=== PATIENT | female | born 1950 | race Caucasian/White ===

== ENCOUNTER 2016-09-26 14:13 | Outpatient (CLI) | payer MEDICARE, OTHER | END 2016-09-26 14:14 | disposition home or self-care (01) | DX: M51.34 Other intervertebral disc degeneration, thoracic region (principal); R53.83 Other fatigue; R06.2 Wheezing ==

== ENCOUNTER 2016-11-27 15:36 | Outpatient (CLI) | payer MEDICARE, OTHER ==
--- NOTE | 2016-11-28 09:26 | XRAY Report ---
THREE-VIEW CERVICAL SPINE: 11/27/2016 CLINICAL INDICATION: Acute neck pain. FINDINGS: AP, lateral, odontoid views of the cervical spine demonstrate moderate degenerative disk a nd facet disease, with disk space narrowing worst at C5-6. There is no evidence of acute fracture. The paravertebral soft tissues appear unremarkable. IMPRESSION: MODERATE DEGENERATIVE CHANGES. JOB #: [id number] EXT JOB #:[id number]
--- NOTE | 2016-11-28 09:27 | XRAY Report ---
THREE-VIEW LEFT SHOULDER: 11/27/2016 CLINICAL INDICATION: Left arm pain. FINDINGS: Internal and external rotational views and a scapular Y view of the left shoulder demonstr ate no evidence of acute fracture or dislocation. Moderate degenerative changes of the glenohumeral joint are noted, with subchondral sclerosis and osteophytes. No radiopaque foreign body is seen in t he soft tissues. IMPRESSION: MODERATE LEFT GLENOHUMERAL OSTEOARTHRITIS. JOB #: [id number] EXT JOB #:[id number]
== END 2016-11-27 15:37 | disposition home or self-care (01) ==
LOC: DI.S 15:36
PROVIDERS: ATTEND Internal Medicine
DX: M50.30 Other cervical disc degeneration, unspecified cervical region (principal); M47.892 Other spondylosis, cervical region; M19.012 Primary osteoarthritis, left shoulder
CPT/HCPCS: 72040

== ENCOUNTER 2016-12-15 07:48 | Outpatient (CLI) | payer MEDICARE, OTHER ==
[2016-12-15 10:48] LABS: BUN - BLOOD UREA NITROGEN 25 mg/dL (6-20); CALCIUM 9.7 mg/dL (8.5-10.3); CARBON DIOXIDE - CO2 25 mmol/L (21-32); CHLORIDE 103 mmol/L (101-111); CHOL/HDL RATIO 3.5 (<4.4); CHOLESTEROL 221 mg/dL; CREATININE 0.9 mg/dL (0.4-1.0); GFR - MDRD 62 (>89); GLUCOSE 109 mg/dL (70-100); HDL CHOLESTEROL 63 mg/dL; LDL/HDL RATIO 2.2 (<4.4); POTASSIUM 4.5 mmol/L (3.5-5.0); SODIUM 135 mmol/L (135-145); TRIGLYCERIDES 110 mg/dL; VLDL CHOLESTEROL 22 mg/dL
[2016-12-15 10:55] LABS: HEMOGLOBIN A1C 0.66 g/dL
== END 2016-12-15 07:49 | disposition home or self-care (01) ==
LOC: LAB.F 07:48
PROVIDERS: ATTEND Internal Medicine
DX: E11.9 Type 2 diabetes mellitus without complications (principal); E78.00 Pure hypercholesterolemia, unspecified; R68.89 Other general symptoms and signs
CPT/HCPCS: 36415; 80048; 80061; 82043; 82570; 83036; 84443

== ENCOUNTER 2017-12-14 07:32 | Outpatient (CLI) | END 2017-12-14 07:33 | disposition home or self-care (01) ==

== ENCOUNTER 2018-01-28 09:49 | Outpatient (CLI) | payer MEDICARE, OTHER ==
[2018-01-28] MEDS ORDERED: REGADENOSON 0.4 MG/5 ML SYRINGE IVP ONE ×2 (10:15→15:42)
--- NOTE | 2018-01-28 16:09 | Nuclear Medicine Report ---
Procedure Date: 01/28/2018 Accession Number: [id number] / [id number] Procedure: NM - Myocardial Perfusion STR/RST CPT Code: FULL RESULT: EXAM: SINGLE-ISOTOPE PHARMACOLOGICAL STRESS TEST WITH REGADENOSON. SINGLE-ISOTOPE AND ONE-DAY REST/STRESS MYOCARDIAL PERFUSION SCANS WITH TOMOGRAPHIC IMAGING, QUANTITATIVE ANALYSIS, WALL MOTION ANALYSIS AND CALCULATION OF EJECTION FRACTION. EXAM DATE: 01/28/2018 03:44 PM. CLINICAL HISTORY: CHEST PRESSURE, SOB. COMPARISON: None. TECHNIQUE: After the intravenous administration of 10.4 mCi of Tc-99m sestamibi, a rest myocardial perfusion scan was done with tomography. Motion correction was applied when appropriate. After an appropriate delay, pharmacological stress was performed with the infusion of 0.4 mg regadenoson per protocol. According to protocol, 40.2 mCi of Tc-99m sestamibi was injected for stress myocardial perfusion scan. Motion correction was applied when appropriate. Gated tomographic images were obtained for wall motion analysis and computation of left ventricular ejection fraction. EKG findings reported separately. FINDINGS: There is mildly decreased activity in the distal anteroseptal wall, more pronounced on the rest images compared to the stress images which is suggestive of an attenuation artifact. No significant convincing fixed or reversible perfusion defects. Computer analysis: Summed stress score 1 Summed rest score 0 Summed difference score 1 Wall motion analysis demonstrates no focal wall motion abnormality. The left ventricular end-diastolic volume is 67 cc. The left ventricular end-systolic volume is 5 cc. The left ventricular ejection fraction is calculated to be 93%. IMPRESSION: 1. No scintigraphic findings to indicate myocardial ischemia. Negative for infarct. 2. Left ventricular ejection fraction of 93% (this is presumably an overestimate). 3. Normal segmental and global wall motion. 4. Normal left ventricular cavity size, no change with stress. 5. Based on computer analysis, normal exam with no ischemia. RADIA
--- NOTE | 2018-01-28 17:53 | CARDIAC PROCEDURE NOTE ---
DATE OF SERVICE: 01/28/2018 Physician: JASMINA Gautam PRIMARY CARE PROVIDER: Diamond Whipple PA-C PROCEDURE: Pharmacologic cardiac stress test. PROCEDURE SYMPTOMS: Dyspnea on exertion. CARDIAC RISK FACTORS: Age, diabetes, and hypertension. PREVIOUS CARDIAC PROCEDURES: ETT. CLINICAL HISTORY: A 67-year-old female without known coronary artery disease. INITIAL RESTING VITAL SIGNS: BP 100/56, heart rate 56, height 60 inches, weight 220 pounds, BMI 43.2 0. PROCEDURE AND FINDINGS: Patient's identity and date verified. Consent signed. Pharmaceutical checked. Pharmacologic stress testing was performed with Lexiscan at a dose of 0.4 mg over 10 seconds. The he art rate increased to 78 beats per minute from the infusion. Blood pressure response initially dippe d to a systolic of 78, but rebounded to 116/60 and was asymptomatic. The patient developed infusion- related symptoms, which included shortness of air, chest pressure, and headache. These required caff eine to fully resolve. The resting electrocardiogram demonstrated normal sinus rhythm with no ST or T-wave changes. Maximum ST segment depression with stress was 0. There was no ectopy. FINAL IMPRESSION 1. Negative electrocardiogram for ischemia in the setting of vasodilator stress. 2. Nondiagnostic stress test for angina. 3. No ectopy. 4. Await myocardial perfusion report. TD: 01/28/2018 14:27
[2018-02-01 17:08] VITALS: BP 100/56
== END 2018-01-28 09:50 | disposition home or self-care (01) ==
LOC: DI 09:49
PROVIDERS: ATTEND Physician Assistant Medical
DX: R07.89 Other chest pain (principal); R06.09 Other forms of dyspnea
CPT/HCPCS: 78452; 93017; A9500; J2785

== ENCOUNTER 2018-02-02 10:04 | Outpatient (CLI) | payer MEDICARE, OTHER | END 2018-02-02 10:05 | disposition home or self-care (01) | LOC: LAB.R 10:04 | PROVIDERS: ATTEND Physician Assistant Medical | DX: N39.0 Urinary tract infection, site not specified (principal) | CPT/HCPCS: 87077; 87086; 87181 ==

== ENCOUNTER 2018-04-26 08:00 | Outpatient (CLI) | payer MEDICARE, OTHER | END 2018-04-26 23:59 | disposition home or self-care (01) | LOC: LAB.R 08:00 | PROVIDERS: ATTEND Physician Assistant Medical | DX: N39.0 Urinary tract infection, site not specified (principal) | CPT/HCPCS: 87086 ==

== ENCOUNTER 2018-11-24 08:00 | Outpatient (CLI) | payer MEDICARE, OTHER ==
[2018-11-24 10:18] LABS: BASOPHILS # (AUTO) 0.1 10^3/uL (0.0-0.1); BASOPHILS % (AUTO) 0.9 %; EOSINOPHILS # (AUTO) 0.3 10^3/uL (0.0-0.7); HGB - HEMOGLOBIN 13.1 g/dL (12.0-16.0); LYMPHOCYTES # (AUTO) 1.7 10^3/uL (1.5-3.5); LYMPHOCYTES % (AUTO) 18.3 %; MEAN CORPUSCULAR HEMOGLOBIN 28.1 pg (27.0-31.0); MEAN CORPUSCULAR HGB CONC 32.5 g/dL (32.0-36.0); MEAN CORPUSCULAR VOLUME 86.4 fL (81.0-99.0); MEAN PLATELET VOLUME 8.2 fL (7.9-10.8); MONOCYTES # (AUTO) 0.5 10^3/uL (0.0-1.0); MONOCYTES % (AUTO) 5.4 %; NEUTROPHILS # (AUTO) 6.9 10^3/uL (1.5-6.6); NEUTROPHILS % (AUTO) 72.4 %; PLT - PLATELET COUNT 310 10^3/uL (130-450); RED BLOOD COUNT 4.64 10^6/uL (4.20-5.40); RED CELL DISTRIBUTION WIDTH 15.6 % (12.0-15.0); WHITE BLOOD COUNT 9.5 x10^3/uL (4.8-10.8)
[2018-11-24 10:28] LABS: ALBUMIN 3.7 g/dL (3.2-5.5); ALKALINE PHOSPHATASE 57 IU/L (42-121); ALT ALANINE AMINOTRANSFERASE 20 IU/L (10-60); AST ASPARTATE AMINOTRANSFERASE 17 IU/L (10-42); BILIRUBIN,TOTAL 0.5 mg/dL (0.2-1.0); BUN - BLOOD UREA NITROGEN 33 mg/dL (6-20); CALCIUM 9.2 mg/dL (8.5-10.3); CARBON DIOXIDE - CO2 24 mmol/L (21-32); CHLORIDE 101 mmol/L (101-111); CHOL/HDL RATIO 3.3 (<4.4); CHOLESTEROL 204 mg/dL; CREATININE 1.1 mg/dL (0.4-1.0); GFR - MDRD 49 (>89); GLUCOSE 127 mg/dL (70-100); HDL CHOLESTEROL 62 mg/dL; LDL CHOLESTEROL,CALCULATED 115 mg/dL; LDL/HDL RATIO 1.9 (<4.4); SODIUM 134 mmol/L (135-145); TOTAL PROTEIN 7.4 g/dL (6.7-8.2); VLDL CHOLESTEROL 27 mg/dL
[2018-11-24 10:30] LABS: HEMOGLOBIN A1C 0.7 g/dL; HEMOGLOBIN A1C % 6.7 % (4.6-6.2)
[2018-11-24 10:31] LABS: CREATININE,URINE 159.2 mg/dL; MICROALBUM/CREATININE RATIO,UR 3.8 ug/mg (<30.0); MICROALBUMIN,URINE 0.6 mg/dL (0-300.0)
== END 2018-11-24 23:59 | disposition home or self-care (01) ==
LOC: LAB.F 08:00
PROVIDERS: ATTEND Physician Assistant Medical
DX: I10 Essential (primary) hypertension (principal); E11.9 Type 2 diabetes mellitus without complications; E78.00 Pure hypercholesterolemia, unspecified; E03.9 Hypothyroidism, unspecified
CPT/HCPCS: 36415; 80053; 80061; 82043; 82570; 83036; 83721; 84443; 85025

== ENCOUNTER 2019-02-24 05:55 | Day surgery (SDC) | payer MEDICARE, OTHER ==
[2019-02-24] MEDS ORDERED: MIDAZOLAM 2 MG/2 ML VIAL IVP ONE (05:56)
[2019-02-24] MEDS ORDERED: fentaNYL 100 MCG/2 ML VIAL IVP ONE (05:56)
[2019-02-24] MEDS ORDERED: PHENYLEPHRINE 2.5% OPHTH 2 ML DROPS ONE (06:29)
[2019-02-24] MEDS ORDERED: PROPARACAINE 0.5% OPHTH DROPS 15 ML ONE (06:29)
[2019-02-24] MEDS ORDERED: LACTATED RINGERS 500 ML IV ONE (06:29)
[2019-02-24] MEDS ORDERED: KETOROLAC 0.45% OPHTH DROPS ONE (06:29)
[2019-02-24] MEDS ORDERED: CYCLOPENTOLATE 1% OPHTH DROPS 2 ML ONE (06:29)
[2019-02-24] MEDS ORDERED: CYCLOPENTOLATE 1% OPHTH DROPS 2 ML RIGHTEYE ONE (06:45)
[2019-02-24] MEDS ORDERED: PROPARACAINE 0.5% OPHTH DROPS 15 ML RIGHTEYE ONE (06:45)
[2019-02-24] MEDS ORDERED: KETOROLAC 0.45% OPHTH DROPS RIGHTEYE ONE (06:45)
[2019-02-24] MEDS ORDERED: PHENYLEPHRINE 2.5% OPHTH 2 ML DROPS RIGHTEYE ONE (06:45)
[2019-02-24] MEDS ORDERED: BSS/LIDOCAINE/EPINEPHRINE 1 ML SYRINGE ONE (07:15)
[2019-02-24] MEDS ORDERED: TIMOLOL 0.5% OPHTH DROPS ONE (07:17)
[2019-02-24] MEDS ORDERED: BRIMONIDINE 0.2% OPHTH DROPS 5 ML ONE (07:17)
[2019-02-24] MEDS ORDERED: TRIAMCIN/MOXIFLOX OPHTHALMIC 0.6 ML VIAL IO ONE ×2 (07:18→07:44)
--- NOTE | 2019-02-24 07:20 | ANESTHESIA ---
Pre-Anesthesia VS, & Labs - Diagnosis senile combined cataract right eye - Procedure cataract extraction with IOL implant right eye Vital Signs: Temp Pulse Resp BP Pulse Ox 36.6 C 78 16 124/70 100 02/24/19 06:33 02/24/19 06:33 02/24/19 06:33 02/24/19 06:33 02/24/19 06:33 Height 5 ft 2 in Weight (kg) 97 kg - NPO >8 hours - Is Patient ?: No - Lab Results Current Lab Results: Laboratory Tests 02/24/19 06:51: POC Whole Bld Glucose 131 H Home Medications and Allergies Home Medications: Ambulatory Orders DULoxetine [Cymbalta] 30 mg PO DAILY 02/24/19 Glimepiride 1 mg PO DAILY 02/24/19 Meloxicam 7.5 mg PO BID 02/24/19 FLUoxetine [PROzac] 40 mg PO DAILY 07/08/15 Gluc/MSM/C/[place]/Manganes/Prim [Joint Support Complex Softgel] 1 tab PO DAILY 07/08/15 DULoxetine [Cymbalta] 30 mg PO DAILY 02/24/19 Glimepiride 1 mg PO DAILY 02/24/19 Meloxicam 7.5 mg PO BID 02/24/19 Allergies/Adverse Reactions: Allergies Allergy/AdvReac Type Severity Reaction Status Date / Time Penicillins Allergy Unknown Verified 07/08/15 23:15 Anes History & Medical History - Anesthetic History Anesthesia Complications: reports: No previous complications - Medical History Cardiovascular: reports: None Pulmonary: reports: None Gastrointestinal: reports: None Urinary: reports: None Neuro: reports: None Musculoskeletal: reports: Osteoarthritis, Fibromyalgia Endocrine/Autoimmune: reports: Type 2 diabetes Blood Disorders: reports: None Skin: reports: None Smoking Status: Former smoker (quit 10 years ago) Psychosocial: reports: Depression - Surgical History Gynecologic: Hysterectomy Orthopedic: Other Exam General: Alert, Oriented x3, Cooperative, No acute distress Dental: Dentures full Upper Mouth Openin Fingerbreadth Neck Mobility: Normal Mallampati classification: III Thyromental Distance: 4-6 cm Respiratory: Lungs clear, Normal breath sounds, No respiratory distress, No accessory muscle use Cardiovascular: Regular rate, Normal S1, Normal S2, No murmurs Mental/Cognitive Status: Alert/Oriented X3, Normal for patient Plan Anesthesia Type: MAC Consent for Procedure(s) Verified and Reviewed: Yes Code Status: Attempt Resuscitation ASA classification: 2-Mild systemic disease Is this case an emergency?: No
[2019-02-24] MEDS ORDERED: CHONDR SULF/HYALURONATE SYRINGE IO ONE (07:43)
[2019-02-24] MEDS ORDERED: TIMOLOL 0.5% OPHTH DROPS OPTH ONE (07:43)
[2019-02-24] MEDS ORDERED: BRIMONIDINE 0.2% OPHTH DROPS 5 ML OPTH ONE (07:43)
[2019-02-24] MEDS ORDERED: EPINEPHrine 1 MG/ML AMP IVP ONE (07:43)
[2019-02-24] MEDS ORDERED: VANCOMYCIN OPHTHALMI 8MG/0.8ML 8 MG/0.8 ML SYRINGE IO ONE (07:44)
[2019-02-24] MEDS ORDERED: BSS/LIDOCAINE/EPINEPHRINE 1 ML SYRINGE IO ONE (07:44)
[2019-02-24 08:13] VITALS: BP 124/73
--- NOTE | 2019-02-24 08:13 | OPERATIVE REPORT ---
DATE OF SERVICE: 02/24/2019 Physician: Jimmy Greenfield MD PREOPERATIVE DIAGNOSIS: Visually significant cataract, right eye. This was her first cataract surge ry. POSTOPERATIVE DIAGNOSIS: Visually significant cataract, right eye. This was her first cataract surg tangela. DESCRIPTION OF PROCEDURE: Phacoemulsification with posterior chamber intraocular lens implant, right eye. SURGEON: Jimmy Greenfield MD ANESTHESIA: Monitored anesthesia care. COMPLICATIONS: None. OPERATIVE INDICATIONS: This is a 68-year-old woman with progressive vision loss in the right eye due to a 2+ nuclear sclerotic and 3-4+ cortical cataract. Best corrected visual acuity was 20/20 with g lare to hand motion vision in the right eye. Indications for surgery are overall decrease in vision, difficulty seeing words on a computer screen, difficulty seeing words, closed caption or game scores on TV, difficulty seeing street signs, difficulty driving in low light or at night, difficulty drivi ng at night because of headlights from other vehicles, and difficulty with glare or bright lights in any situation. She was consented at length concerning risks and benefits of cataract surgery, after which she expressed a desire to proceed with surgery. OPERATIVE PROCEDURE: The patient was taken to OR #3 and placed under monitored anesthesia care. Toño gical timeout was conducted confirming correct patient, correct procedure, and correct surgical site. She was given topical anesthesia, and prepped and draped in the usual sterile fashion. The eye was entered at the 12 and 9 o'clock positions. Intracameral Shugarcaine was injected into the anterior chamber, followed by Viscoat. A continuous-tear curvilinear capsulorrhexis was performed. The nucle us was hydrodissected and phacoemulsified. The cortex was evacuated using automated infusion and asp iration. Provisc was injected in the capsular bag, and a 19.5 diopter intraocular lens inserted in t he bag. Approximately 0.8 mL of a mixture of triamcinolone, moxifloxacin and vancomycin was injected subconjunctivally in the superior quadrant for infection and inflammation prophylaxis. I and A, was used to evacuate the viscoelastic materials. The eye was inflated to physiologic pressure using bal anced salt solution and found to be watertight. The patient was taken from the operating room in goo d condition and given postoperative instructions. TD: 02/24/2019 08:02
== END 2019-02-24 05:56 | disposition home or self-care (01) ==
LOC: SDS 05:55
PROVIDERS: ATTEND Ophthalmology
PROC: 08RJ3JZ Replacement of Right Lens with Synthetic Substitute, Percutaneous Approach (ICD-10-PCS; principal; 2019-02-24 07:30)
DX: E11.36 Type 2 diabetes mellitus with diabetic cataract (principal); M06.9 Rheumatoid arthritis, unspecified; G30.9 Alzheimer's disease, unspecified; F02.80 Dementia in other diseases classified elsewhere, unspecified severity, without behavioral disturbance, psychotic disturbance, mood disturbance, and anxiety; I10 Essential (primary) hypertension; M79.7 Fibromyalgia; F32.9 Major depressive disorder, single episode, unspecified; Z87.891 Personal history of nicotine dependence; Z79.84 Long term (current) use of oral hypoglycemic drugs
CPT/HCPCS: 66984; A9270; J3490; V2632

== ENCOUNTER 2019-04-07 06:33 | Day surgery (SDC) | payer MEDICARE, OTHER ==
[2019-04-07] MEDS ORDERED: MIDAZOLAM 2 MG/2 ML VIAL IVP ONE (06:34)
[2019-04-07] MEDS ORDERED: fentaNYL 100 MCG/2 ML VIAL IVP ONE (06:34)
[2019-04-07] MEDS ORDERED: LACTATED RINGERS 500 ML IV ONE (06:55)
[2019-04-07] MEDS ORDERED: KETOROLAC 0.45% OPHTH DROPS ONE (07:01)
[2019-04-07] MEDS ORDERED: CYCLOPENTOLATE 1% OPHTH DROPS 2 ML ONE (07:01)
[2019-04-07] MEDS ORDERED: PHENYLEPHRINE 2.5% OPHTH 2 ML DROPS ONE (07:01)
[2019-04-07] MEDS ORDERED: PROPARACAINE 0.5% OPHTH DROPS 15 ML ONE (07:01)
[2019-04-07] MEDS ORDERED: PHENYLEPHRINE 2.5% OPHTH 2 ML DROPS LEFTEYE ONE (07:10)
[2019-04-07] MEDS ORDERED: KETOROLAC 0.45% OPHTH DROPS LEFTEYE ONE (07:10)
[2019-04-07] MEDS ORDERED: PROPARACAINE 0.5% OPHTH DROPS 15 ML LEFTEYE ONE ×2 (07:10→07:59)
[2019-04-07] MEDS ORDERED: CYCLOPENTOLATE 1% OPHTH DROPS 2 ML LEFTEYE ONE (07:10)
--- NOTE | 2019-04-07 07:43 | ANESTHESIA ---
Pre-Anesthesia VS, & Labs - Diagnosis left cataract, senile combined - Procedure left cataract extraction with intraocular lens Vital Signs: Temp Pulse Resp BP Pulse Ox 36.9 C 65 16 114/88 H 96 04/07/19 06:55 04/07/19 06:55 04/07/19 06:55 04/07/19 06:55 04/07/19 06:55 Height 5 ft 2 in Weight (kg) 97 kg - NPO >8 hours - Is Patient ?: Yes - Lab Results Current Lab Results: Laboratory Tests 04/07/19 07:05: POC Whole Bld Glucose 112 H Home Medications and Allergies Home Medications: Ambulatory Orders Lisinopril 20 mg PO DAILY 04/07/19 FLUoxetine [PROzac] 40 mg PO DAILY 07/08/15 Gluc/MSM/C/[place]/Manganes/Prim [Joint Support Complex Softgel] 1 tab PO DAILY 07/08/15 DULoxetine [Cymbalta] 30 mg PO DAILY 02/24/19 Glimepiride 1 mg PO DAILY 02/24/19 Meloxicam 7.5 mg PO BID 02/24/19 Lisinopril 20 mg PO DAILY 04/07/19 Allergies/Adverse Reactions: Allergies Allergy/AdvReac Type Severity Reaction Status Date / Time Penicillins Allergy Unknown Verified 04/07/19 06:55 Anes History & Medical History - Anesthetic History Anesthesia Complications: reports: No previous complications - Medical History Cardiovascular: reports: None Pulmonary: reports: None Gastrointestinal: reports: None Urinary: reports: None Neuro: reports: None Musculoskeletal: reports: Osteoarthritis, Fibromyalgia Endocrine/Autoimmune: reports: Type 2 diabetes Blood Disorders: reports: None Skin: reports: None Smoking Status: Former smoker (quit 10 years ago) - Surgical History Gynecologic: Hysterectomy Orthopedic: Other Exam General: Alert Dental: WNL, Dentures full Upper Neck Mobility: Normal Mallampati classification: II Thyromental Distance: greater than 6 cm Respiratory: Lungs clear Cardiovascular: Regular rate, Normal S1, Normal S2 Plan Anesthesia Type: MAC Consent for Procedure(s) Verified and Reviewed: Yes Code Status: Attempt Resuscitation ASA classification: 2-Mild systemic disease Is this case an emergency?: No
[2019-04-07] MEDS ORDERED: TIMOLOL 0.5% OPHTH DROPS OPTH ONE (07:58)
[2019-04-07] MEDS ORDERED: CHONDR SULF/HYALURONATE SYRINGE IO ONE (07:58)
[2019-04-07] MEDS ORDERED: BRIMONIDINE 0.2% OPHTH DROPS 5 ML OPTH ONE (07:58)
[2019-04-07] MEDS ORDERED: EPINEPHrine 1 MG/ML AMP IVP ONE (07:58)
[2019-04-07] MEDS ORDERED: BSS/LIDOCAINE/EPINEPHRINE 1 ML SYRINGE IO ONE (07:58)
[2019-04-07] MEDS ORDERED: TRIAMCIN/MOXIFLOX OPHTHALMIC 0.6 ML VIAL IO ONE ×2 (07:59→10:14)
[2019-04-07] MEDS ORDERED: VANCOMYCIN OPHTHALMI 8MG/0.8ML 8 MG/0.8 ML SYRINGE IO ONE ×2 (07:59→10:14)
[2019-04-07 08:10] VITALS: BP 121/48
--- NOTE | 2019-04-07 08:39 | OPERATIVE REPORT ---
DATE OF SERVICE: 04/07/2019 Physician: Jimmy Greenfield MD PREOPERATIVE DIAGNOSIS: Visually significant cataract, left eye. Cataract surgery was performed on the right eye on 02/24/2019. POSTOPERATIVE DIAGNOSIS: Visually significant cataract, left eye. Cataract surgery was performed on the right eye on 02/24/2019. PROCEDURE: Phacoemulsification with posterior chamber intraocular lens implant, left eye. SURGEON: Jimmy Greenfield MD ANESTHESIA: Monitored anesthesia care. COMPLICATIONS: None. OPERATIVE INDICATIONS: This is a 68-year-old woman with progressive vision loss in the left eye due to 2+ nuclear sclerotic and 3 to 4+ cortical cataract. Best corrected visual acuity was 20/25 with glare to hand motion vision in the left eye. Indications for surgery were difficulty seeing words on a computer screen, difficulty seeing words, closed caption or game scores on TV, difficulty seeing street signs, difficulty driving in low light or at night, difficulty driving at night because of headlights from other vehicles, and difficulty with glare or bright lights in any situation. She was consented at length concerning risks and benefits of cataract surgery, after which she expressed a desire to proceed with surgery. OPERATIVE PROCEDURE: Patient was taken to OR #3 and placed under monitored anesthesia care. A surgical timeout was conducted confirming correct patient, correct procedure, and correct surgical site. She was given topical anesthesia, then prepped and draped in the usual sterile fashion. The eye was entered at the 6 and 3-o'clock positions. Intracameral Shugarcaine was injected into the anterior chamber, followed by Viscoat. A continuous-tear curvilinear capsulorrhexis was performed. The nucleus was hydrodissected and phacoemulsified. The cortex was evacuated using automated infusion and aspiration. Provisc was injected in the capsular bag, and a 20.5-diopter intraocular lens was inserted into the bag for a target of -2.0 postoperative refraction. Approximately 0.8 mL of a mixture of triamcinolone, moxifloxacin, and vancomycin was injected subconjunctivally in the superior quadrant for infection and inflammation prophylaxis. I and A was used to evacuate the viscoelastic materials. The eye was inflated to physiologic pressure using balanced salt solution and found to be watertight. Patient was taken from the operating room in good condition and given postoperative instructions. TD: 04/07/2019 08:19 MTDD
[2019-04-07] MEDS ORDERED: BSS/LIDOCAINE/EPINEPHRINE 1 ML SYRINGE ONE (10:14)
[2019-04-07] MEDS ORDERED: TIMOLOL 0.5% OPHTH DROPS ONE (10:14)
[2019-04-07] MEDS ORDERED: EPINEPHrine 1 MG/ML AMP ONE (10:14)
[2019-04-07] MEDS ORDERED: BRIMONIDINE 0.2% OPHTH DROPS 5 ML ONE (10:14)
== END 2019-04-07 06:34 | disposition home or self-care (01) ==
LOC: SDS 06:33
PROVIDERS: ATTEND Ophthalmology
PROC: 08RK3JZ Replacement of Left Lens with Synthetic Substitute, Percutaneous Approach (ICD-10-PCS; principal; 2019-04-07 08:00)
DX: H25.812 Combined forms of age-related cataract, left eye (principal); I10 Essential (primary) hypertension; E11.9 Type 2 diabetes mellitus without complications; Z87.891 Personal history of nicotine dependence
CPT/HCPCS: 66984; A9270; J3490; V2632

== ENCOUNTER 2019-06-24 01:02 | Emergency (ER) | payer MEDICARE, OTHER ==
--- NOTE | 2019-06-24 01:21 | ED Physician Documentation ---
PD HPI LOWER EXT INJURY - Stated complaint Stated Complaint: LT LEG PX - History obtained from History obtained from: Patient - History of Present Illness PD HPI LOW EXT INJURY LOCATION: Left, Knee Where injury occurred: Home Timing - onset: How many days ago (3) Timing - duration: Days (3) Timing - details: Abrupt onset Pain level now: 3 Improved by: Immobilization Worsened by: Moving Associated symptoms: Swelling. No: Weakness, Numbness, Tingling Contributing factors: No: Anticoagulated Recently seen: Clinic - Additional information Additional information: This is a 68-year-old woman who presents with complaints that she "blew her knee out". She says she got out of bed the other morning about 3 days ago and almost fell down her left knee was in such pain. Is gotten increasingly worse since then and she went to the clinic today where she says she was prescribed meloxicam which she already has. She cannot put any weight on it or hardly move it at this point she had to have help even getting it up onto the bed. Now she is having pain radiating up and down the lateral aspect of the leg centered from the knee. Moving or standing makes it much worse and just sitting here without moving it is about a 2-3 out of 10. She has noted some swelling to it and it feels hot. She is been a little nauseous but that is not unusual for her with her fibromyalgia. She is not been vomiting. She is a diabetic but she does not check her blood sugar at home. Denies history of gout. No numbness or tingling down into the foot. She is had prior right ankle surgery with hardware placement. She has known arthritis in both knees and says that she needs to have knee replacements. Review of Systems Constitutional: denies: Fever GI: reports: Nausea. denies: Vomiting Skin: denies: Rash Musculoskeletal: reports: Extremity pain, Joint pain, Joint swelling, Pain with weight bearing Neurologic: denies: Numbness Endocrine: reports: Other (Patient is diabetic) PD PAST MEDICAL HISTORY - Past Medical History Cardiovascular: None Respiratory: None Neuro: None Endocrine/Autoimmune: Type 2 diabetes GI: None : None HEENT: Chronic vision loss Psych: Depression Musculoskeletal: Osteoarthritis, Fibromyalgia Derm: None - Past Surgical History Past Surgical History: Yes Ortho: Other /[employer]: Hysterectomy - Present Medications Home Medications: Ambulatory Orders Medication Instructions Recorded Confirmed FLUoxetine [PROzac] 40 mg PO DAILY 07/08/15 04/07/19 Gluc/MSM/C/[place]/Manganes/Prim 1 tab PO DAILY 07/08/15 04/07/19 [Joint Support Complex Softgel] DULoxetine [Cymbalta] 30 mg PO DAILY 02/24/19 04/07/19 Glimepiride 1 mg PO DAILY 02/24/19 04/07/19 Meloxicam 7.5 mg PO BID 02/24/19 04/07/19 lisinopriL [Lisinopril] 20 mg PO DAILY 04/07/19 04/07/19 Hydrocodone/Acetaminophen 1 - 2 each PO Q6H PRN #14 tablet 06/24/19 [Hydrocodon-Acetaminophen 5-325] - Allergies Allergies/Adverse Reactions: Allergies Allergy/AdvReac Type Severity Reaction Status Date / Time Penicillins Allergy Unknown Verified 06/24/19 01:22 - Social History Does the pt smoke?: No Smoking Status: Former smoker (quit 10 years ago) Does the pt drink ETOH?: No Does the pt have substance abuse?: No - Immunizations Immunizations are current?: No - POLST Patient has POLST: No PD ED PE NORMAL - Vitals Vital signs reviewed: Yes - General General: Alert and oriented X 3, No acute distress, Well developed/nourished - Extremities Extremities: Other (The left knee does appear a little swollen compared to the right. There is erythema along the medial aspect and it feels warm. There is a small joint effusion. She has extremely limited range of motion secondary to the pain she cannot flex it more than about 170 degrees. She has a palpable dorsalis pedis pulse is able to wiggle her toes and sensation is intact to light touch.) - Neuro Neuro: Alert and oriented X 3, No motor deficit, No sensory deficit, Normal speech - Psych Psych: Normal mood, Normal affect Results - Vitals Vitals: Vital Signs - 24 hr 06/24/19 06/24/19 06/24/19 01:19 02:17 02:39 Temperature 36.5 C Heart Rate 69 60 60 Respiratory 19 17 16 Rate Blood Pressure 130/80 130/49 L 133/63 H O2 Saturation 100 96 99 06/24/19 06/24/19 06/24/19 03:06 05:02 05:43 Temperature Heart Rate 64 67 Respiratory 16 20 16 Rate Blood Pressure 134/62 H 120/48 L O2 Saturation 97 97 06/24/19 06/24/19 05:45 06:05 Temperature Heart Rate 64 Respiratory 16 17 Rate Blood Pressure 125/65 O2 Saturation 100 Oxygen O2 Source Room air - Labs Labs: Microbiology 06/24/19 04:42 Body Fluid Culture - Preliminary Synovial Fluid Laboratory Tests 06/24/19 06/24/19 06/24/19 01:55 01:55 01:55 WBC 9.4 RBC 4.17 L Hgb 11.9 L Hct 37.5 MCV 89.9 MCH 28.5 MCHC 31.7 L RDW 15.5 H Plt Count 276 MPV 9.3 Neut # (Auto) 6.6 Lymph # (Auto) 1.9 [place] # (Auto) 0.6 Eos # (Auto) 0.2 Baso # (Auto) 0.1 Absolute Nucleated RBC 0.00 Nucleated RBC % 0.0 ESR 25 Sodium 135 Potassium 3.9 Chloride 101 Carbon Dioxide 24 Anion Gap 10.0 BUN 38 H Creatinine 1.5 H Estimated GFR (MDRD) 34 L Glucose 120 H Uric Acid 7.8 H Calcium 8.9 C-Reactive Protein 2.1 H Fluid Source Fluid Color Fluid Clarity Fluid WBC Fluid RBC Fluid Neutrophils % Fluid Lymphocytes % Fluid Monocytes % Fluid Eosinophils % Fluid Basophils % Fluid Macrophages % Fld Mesothelial Cell % Fluid Crystals CSF Glucose CSF Total Protein 06/24/19 06/24/19 04:42 04:42 WBC RBC Hgb Hct MCV MCH MCHC RDW Plt Count MPV Neut # (Auto) Lymph # (Auto) [place] # (Auto) Eos # (Auto) Baso # (Auto) Absolute Nucleated RBC Nucleated RBC % ESR Sodium Potassium Chloride Carbon Dioxide Anion Gap BUN Creatinine Estimated GFR (MDRD) Glucose Uric Acid Calcium C-Reactive Protein Fluid Source SYNOVIAL Fluid Color YELLOW Fluid Clarity HAZY Fluid WBC 3915 Fluid RBC 5000 Fluid Neutrophils % 83 Fluid Lymphocytes % 8 Fluid Monocytes % 9 Fluid Eosinophils % 0 Fluid Basophils % 0 Fluid Macrophages % 0 Fld Mesothelial Cell % 0 Fluid Crystals NONE SEEN CSF Glucose Cancelled CSF Total Protein Cancelled Procedures - Arthrocentesis Joint: Knee, Left Preparation: Consent obtained, Sterile prep and drape. No: Ultrasound used Anesthesia: Lidocaine 1% Fluid: Clear, Sent for cell count, Sent for crystals, Sent for culture, Fluid obtained - cc (5), Sent for gram stain Aftercare: Dressing applied, No complications, Patient tolerated well PD MEDICAL DECISION MAKING - ED course Complexity details: reviewed results, d/w patient ED course: CRP is mildly elevated. WBC and ESR are normal. Synovial fluid with some WBCs, but neg gram stain. D/C with outpatient F/U and Hydrocodone for pain. Departure - Departure Disposition: Home, Self Care Clinical Impression: Knee pain, left Qualifiers: Chronicity: acute Qualified Code(s): M25.562 - Pain in left knee Condition: Good Instructions: ED Effusion Knee Follow-Up: Diamond Whipple PA-C [Primary Care Provider] - Jonelle Bloom MD [Physician No Access] - Prescriptions: Hydrocodone/Acetaminophen [Hydrocodon-Acetaminophen 5-325] 1 - 2 each PO Q6H PRN #14 tablet PRN Reason: pain Comments: Use your cane. Take Hydrocodone if needed for pain. Keep the appointment with the Orthopedist for further management.
[2019-06-24] MEDS ORDERED: ONDANSETRON 4 MG/2 ML VIAL IVP STA (01:44)
[2019-06-24] MEDS ORDERED: MORPHINE 2 MG/ML CARPUJECT IVP STA (01:44)
[2019-06-24] MEDS ORDERED: BUFFERED LIDOCAINE 10 ML SYRINGE SUBQ STA (01:53)
[2019-06-24 02:03] LABS: BASOPHILS # (AUTO) 0.1 10^3/uL (0.0-0.1); BASOPHILS % (AUTO) 0.6 %; EOSINOPHILS # (AUTO) 0.2 10^3/uL (0.0-0.7); EOSINOPHILS % (AUTO) 1.9 %; HGB - HEMOGLOBIN 11.9 g/dL (12.0-16.0); LYMPHOCYTES # (AUTO) 1.9 10^3/uL (1.5-3.5); LYMPHOCYTES % (AUTO) 19.9 %; MEAN CORPUSCULAR HEMOGLOBIN 28.5 pg (27.0-31.0); MEAN CORPUSCULAR HGB CONC 31.7 g/dL (32.0-36.0); MEAN CORPUSCULAR VOLUME 89.9 fL (81.0-99.0); MEAN PLATELET VOLUME 9.3 fL (7.9-10.8); MONOCYTES # (AUTO) 0.6 10^3/uL (0.0-1.0); MONOCYTES % (AUTO) 6.6 %; NEUTROPHILS # (AUTO) 6.6 10^3/uL (1.5-6.6); NEUTROPHILS % (AUTO) 70.5 %; PLT - PLATELET COUNT 276 10^3/uL (130-450); RED BLOOD COUNT 4.17 10^6/uL (4.20-5.40); RED CELL DISTRIBUTION WIDTH 15.5 % (12.0-15.0); WHITE BLOOD COUNT 9.4 x10^3/uL (4.8-10.8)
[2019-06-24 02:21] LABS: CALCIUM 8.9 mg/dL (8.5-10.3); CREATININE 1.5 mg/dL (0.4-1.0); CRP - C-REACTIVE PROTEIN 2.1 mg/dL (0-1.0); URIC ACID 7.8 mg/dL (2.6-7.2)
--- NOTE | 2019-06-24 02:35 | XRAY Report ---
Reason: pain Procedure Date: 06/24/2019 Accession Number: [id number] / [id number] Procedure: XR - Knee 4 View LT CPT Code: Final Report FULL RESULT: EXAM: LEFT KNEE RADIOGRAPHY EXAM DATE: 06/24/2019 02:07 AM CLINICAL HISTORY: Nontraumatic left knee pain. COMPARISON: None. TECHNIQUE: 4 views. FINDINGS: Bones: Normal. No fractures or bone lesions. Joints: No malalignment. Mild tricompartmental degenerative changes and small femorotibial loose bodies present. Soft Tissues: Normal. No soft tissue swelling. IMPRESSION: Mild tricompartmental degenerative changes and small femorotibial loose bodies present. RADIA
[2019-06-24 05:17] LABS: BF COLOR YELLOW; BF SOURCE SYNOVIAL; CC,BF RBC 5000 /mm^3
[2019-06-24] MEDS: MORPHINE 2 MG/ML CARPUJECT IVP STA ×2 (05:29→05:57)
[2019-06-24 05:34] LABS: BASOPHILS %,BODY FLUID 0 %; EOSINOPHILS %,BODY FLUID 0 %; LYMPHOCYTES %,BODY FLUID 8; MACROPHAGES %,BODY FLUID 0 %; MESOTHELIAL %, BF 0 %; MONOCYTES %,BODY FLUID 9 %
[2019-06-24 06:05] VITALS: BP 125/65
[2019-06-24] MEDS ORDERED: HYDROcod/ACET 5/325 Prepack 4 PO STA (06:08)
== END 2019-06-24 06:17 | disposition home or self-care (01) ==
LOC: ED 01:02
DX: M25.562 Pain in left knee (principal); M25.462 Effusion, left knee; M23.42 Loose body in knee, left knee; M17.0 Bilateral primary osteoarthritis of knee; E11.9 Type 2 diabetes mellitus without complications; Z79.84 Long term (current) use of oral hypoglycemic drugs; Z87.891 Personal history of nicotine dependence
CPT/HCPCS: 20610; 36415; 80048; 82945; 84157; 84550; 85025; 85651; 86140; 87070; 87205; 89051; 89060; 96374

== ENCOUNTER 2019-08-03 14:14 | Outpatient (CLI) | payer MEDICARE, OTHER ==
[2019-08-03 14:42] LABS: BILIRUBIN,URINE NEGATIVE (NEGATIVE); GLUCOSE, URINE (UA) NEGATIVE (NEGATIVE); KETONES,URINE (UA) NEGATIVE (NEGATIVE); LEUKOCYTE ESTERASE, URINE NEGATIVE (NEGATIVE); NITRITE,URINE NEGATIVE (NEGATIVE); OCCULT BLOOD,URINE NEGATIVE (NEGATIVE); PROTEIN,URINE NEGATIVE (NEGATIVE); UROBILINOGEN,URINE 0.2 (NORMAL) E.U./dL (NORMAL)
[2019-08-03 14:45] LABS: CLARITY,URINE CLEAR (CLEAR)
[2019-08-03 14:48] LABS: BASOPHILS # (AUTO) 0.1 10^3/uL (0.0-0.1); BASOPHILS % (AUTO) 0.6 %; EOSINOPHILS # (AUTO) 0.1 10^3/uL (0.0-0.7); EOSINOPHILS % (AUTO) 0.9 %; HGB - HEMOGLOBIN 12.9 g/dL (12.0-16.0); LYMPHOCYTES # (AUTO) 1.7 10^3/uL (1.5-3.5); LYMPHOCYTES % (AUTO) 15.5 %; MEAN CORPUSCULAR HEMOGLOBIN 28.9 pg (27.0-31.0); MEAN CORPUSCULAR HGB CONC 32.3 g/dL (32.0-36.0); MEAN CORPUSCULAR VOLUME 89.3 fL (81.0-99.0); MEAN PLATELET VOLUME 9.4 fL (7.9-10.8); MONOCYTES # (AUTO) 0.5 10^3/uL (0.0-1.0); MONOCYTES % (AUTO) 4.1 %; NEUTROPHILS # (AUTO) 8.7 10^3/uL (1.5-6.6); NEUTROPHILS % (AUTO) 78.4 %; PLT - PLATELET COUNT 323 10^3/uL (130-450); RED BLOOD COUNT 4.47 10^6/uL (4.20-5.40); RED CELL DISTRIBUTION WIDTH 15.6 % (12.0-15.0); WHITE BLOOD COUNT 11.1 x10^3/uL (4.8-10.8)
[2019-08-03 14:53] LABS: BACTERIA,URINE Rare /HPF (None Seen); CALCIUM 9.6 mg/dL (8.5-10.3); CASTS, URINE 0-2 Hyaline Casts /LPF; CREATININE 1.5 mg/dL (0.4-1.0); RBC,URINE 0-5 /HPF (0-5); SQUAMOUS EPITHELIAL CELL,UR MOD Squamous (<= Few)
[2019-08-03 15:00] LABS: HB2 TOTAL 12.9 g/dL; HEMOGLOBIN A1C 0.63 g/dL; HEMOGLOBIN A1C % 6.6 % (4.6-6.2)
== END 2019-08-03 14:15 | disposition home or self-care (01) ==
LOC: LAB 14:14
PROVIDERS: ATTEND Orthopaedic Surgery
DX: Z01.818 Encounter for other preprocedural examination (principal); Z01.812 Encounter for preprocedural laboratory examination; R73.9 Hyperglycemia, unspecified; N39.0 Urinary tract infection, site not specified
CPT/HCPCS: 36415; 80048; 81001; 83036; 85025; 87086; 93005

== ENCOUNTER 2019-11-30 10:47 | Outpatient (CLI) | payer MEDICARE, OTHER ==
[2019-11-30 15:07] LABS: BILIRUBIN,URINE NEGATIVE (NEGATIVE); GLUCOSE, URINE (UA) NEGATIVE (NEGATIVE); KETONES,URINE (UA) TRACE mg/dL (NEGATIVE); LEUKOCYTE ESTERASE, URINE NEGATIVE (NEGATIVE); NITRITE,URINE NEGATIVE (NEGATIVE); OCCULT BLOOD,URINE NEGATIVE (NEGATIVE); PROTEIN,URINE TRACE mg/dL (NEGATIVE); UROBILINOGEN,URINE 0.2 (NORMAL) E.U./dL (NORMAL)
[2019-11-30 15:10] LABS: CLARITY,URINE CLEAR (CLEAR)
[2019-11-30 15:15] LABS: BASOPHILS # (AUTO) 0.1 10^3/uL (0.0-0.1); BASOPHILS % (AUTO) 0.7 %; EOSINOPHILS # (AUTO) 0.2 10^3/uL (0.0-0.7); EOSINOPHILS % (AUTO) 1.4 %; HGB - HEMOGLOBIN 12.5 g/dL (12.0-16.0); LYMPHOCYTES % (AUTO) 18.3 %; MEAN CORPUSCULAR HGB CONC 31.9 g/dL (32.0-36.0); MEAN CORPUSCULAR VOLUME 87.9 fL (81.0-99.0); MONOCYTES # (AUTO) 0.6 10^3/uL (0.0-1.0); MONOCYTES % (AUTO) 5.4 %; NEUTROPHILS # (AUTO) 7.9 10^3/uL (1.5-6.6); NEUTROPHILS % (AUTO) 73.7 %; PLT - PLATELET COUNT 343 10^3/uL (130-450); RED BLOOD COUNT 4.46 10^6/uL (4.20-5.40); RED CELL DISTRIBUTION WIDTH 15.4 % (12.0-15.0); WHITE BLOOD COUNT 10.7 x10^3/uL (4.8-10.8)
[2019-11-30 15:32] LABS: PLATELET ESTIMATE, MANUAL NORMAL (130-450,000) (NORMAL); PLATELET MORPHOLOGY NORMAL APPEARANCE (NORMAL); RBC MORPHOLOGY (MULTIPLE) NORMAL APPEARANCE (NORMAL)
[2019-11-30 15:33] LABS: CALCIUM 9.2 mg/dL (8.5-10.3); CREATININE 1.1 mg/dL (0.4-1.0)
[2019-11-30 16:10] LABS: HB2 TOTAL 13.1 g/dL; HEMOGLOBIN A1C 0.67 g/dL; HEMOGLOBIN A1C % 6.8 % (4.6-6.2)
== END 2019-11-30 10:48 | disposition home or self-care (01) ==
LOC: LAB.S 10:47
PROVIDERS: ATTEND Orthopaedic Surgery
DX: Z01.812 Encounter for preprocedural laboratory examination (principal); N39.0 Urinary tract infection, site not specified; R73.9 Hyperglycemia, unspecified
CPT/HCPCS: 36415; 80048; 81001; 81003; 83036; 85025; 87086

== ENCOUNTER 2020-09-28 08:00 | Outpatient (CLI) | payer MEDICARE, OTHER ==
[2020-09-28 15:01] LABS: BASOPHILS # (AUTO) 0.1 10^3/uL (0.0-0.1); BASOPHILS % (AUTO) 0.9 %; EOSINOPHILS # (AUTO) 0.2 10^3/uL (0.0-0.7); HCT - HEMATOCRIT 40.1 % (37.0-47.0); HGB - HEMOGLOBIN 12.2 g/dL (12.0-16.0); LYMPHOCYTES # (AUTO) 1.6 10^3/uL (1.5-3.5); LYMPHOCYTES % (AUTO) 19.4 %; MEAN CORPUSCULAR HEMOGLOBIN 27.9 pg (27.0-31.0); MEAN CORPUSCULAR HGB CONC 30.4 g/dL (32.0-36.0); MEAN CORPUSCULAR VOLUME 91.8 fL (81.0-99.0); MEAN PLATELET VOLUME 10.4 fL (7.9-10.8); MONOCYTES # (AUTO) 0.5 10^3/uL (0.0-1.0); MONOCYTES % (AUTO) 6.3 %; NEUTROPHILS # (AUTO) 5.7 10^3/uL (1.5-6.6); PLT - PLATELET COUNT 338 10^3/uL (130-450); RED BLOOD COUNT 4.37 10^6/uL (4.20-5.40); WHITE BLOOD COUNT 8.1 x10^3/uL (4.8-10.8)
[2020-09-28 15:23] LABS: THYROID STIMULATING HORMONE 2.69 uIU/mL (0.34-5.60)
[2020-09-28 15:30] LABS: ALBUMIN 4.1 g/dL (3.2-5.5); ALBUMIN/GLOBULIN RATIO 1.1 (1.0-2.2); ALKALINE PHOSPHATASE 52 IU/L (42-121); ALT ALANINE AMINOTRANSFERASE 18 IU/L (10-60); AST ASPARTATE AMINOTRANSFERASE 16 IU/L (10-42); BILIRUBIN,TOTAL 0.5 mg/dL (0.2-1.0); BUN - BLOOD UREA NITROGEN 50 mg/dL (6-20); CALCIUM 9.4 mg/dL (8.5-10.3); CARBON DIOXIDE - CO2 24 mmol/L (21-32); CHLORIDE 100 mmol/L (101-111); CHOL/HDL RATIO 3.9 (<4.4); CHOLESTEROL 229 mg/dL; CREATININE 1.5 mg/dL (0.4-1.0); GFR - MDRD 34 (>89); GLUCOSE 146 mg/dL (70-100); HDL CHOLESTEROL 59 mg/dL; LDL CHOLESTEROL,CALCULATED 131 mg/dL; LDL/HDL RATIO 2.2 (<4.4); POTASSIUM 4.4 mmol/L (3.5-5.0); SODIUM 134 mmol/L (135-145); TOTAL PROTEIN 7.7 g/dL (6.7-8.2); TRIGLYCERIDES 195 mg/dL; VLDL CHOLESTEROL 39 mg/dL
[2020-09-28 20:45] LABS: ESTIMATED AVERAGE GLUCOSE 148 mg/dL (70-100); HEMOGLOBIN A1c% 6.8 % (4.27-6.07)
== END 2020-09-28 08:01 | disposition home or self-care (01) ==
LOC: LAB.S 08:00
PROVIDERS: ATTEND Physician Assistant
DX: E11.9 Type 2 diabetes mellitus without complications (principal); Z79.899 Other long term (current) drug therapy; E03.9 Hypothyroidism, unspecified; E78.00 Pure hypercholesterolemia, unspecified; E66.9 Obesity, unspecified; I10 Essential (primary) hypertension
CPT/HCPCS: 36415; 80053; 80061; 83036; 83721; 84443; 85025

== ENCOUNTER 2020-10-30 12:16 | Outpatient (CLI) | payer MEDICARE, OTHER ==
[2020-10-30 15:12] LABS: CALCIUM 9.5 mg/dL (8.5-10.3); CREATININE 1.1 mg/dL (0.4-1.0); POTASSIUM 4.4 mmol/L (3.5-5.0)
[2020-10-30 15:17] LABS: CREATININE,URINE 158.9 mg/dL; PROTEIN/CREATININE RATIO,URINE 0.1 (<=0.2)
== END 2020-10-30 12:17 | disposition home or self-care (01) ==
LOC: LAB.S 12:16
PROVIDERS: ATTEND Internal Medicine Nephrology
DX: N05.9 Unspecified nephritic syndrome with unspecified morphologic changes (principal); R80.9 Proteinuria, unspecified
CPT/HCPCS: 36415; 80048; 82570; 84156

== ENCOUNTER 2020-12-06 08:00 | Outpatient (CLI) | payer MEDICARE, OTHER ==
--- NOTE | 2020-12-06 10:31 | XRAY Report ---
PROCEDURE: Chest 2 View X-Ray INDICATIONS: Cough, congestion TECHNIQUE: 2 view(s) of the chest. COMPARISON: 09/26/2016 FINDINGS: Surgical changes and devices: None. Lungs and pleura: No pleural effusions or pneumothorax. Lungs are clear. Mediastinum: Mediastinal contours are normal. Heart size is normal. Bones and chest wall: No suspicious bony abnormalities. Soft tissues appear unremarkable. IMPRESSION: No acute finding. Reviewed by: Jose Rodriguez MD on 12/06/2020 10:29 AM PDT Approved by: Jose Rodriguez MD on 12/06/2020 10:29 AM PDT Station ID: [id number]
== END 2020-12-06 23:59 | disposition home or self-care (01) ==
LOC: DI.S 08:00
PROVIDERS: ATTEND Physician Assistant Medical
DX: R05 Cough (principal); R09.89 Other specified symptoms and signs involving the circulatory and respiratory systems; J02.9 Acute pharyngitis, unspecified; Z20.822 Contact with and (suspected) exposure to COVID-19; N05.9 Unspecified nephritic syndrome with unspecified morphologic changes
CPT/HCPCS: 36415; 71046; 80048; 87070; U0004

== ENCOUNTER 2020-12-06 09:22 | Outpatient (CLI) | payer MEDICARE, OTHER ==
[2020-12-06 16:31] LABS: CALCIUM 9.6 mg/dL (8.5-10.3); CREATININE 1.1 mg/dL (0.4-1.0); POTASSIUM 4.4 mmol/L (3.5-5.0)
== END 2020-12-06 09:23 | disposition home or self-care (01) ==
LOC: LAB.S 09:22
PROVIDERS: ATTEND Internal Medicine Nephrology
DX: N05.9 Unspecified nephritic syndrome with unspecified morphologic changes (principal)
CPT/HCPCS: 36415; 80048

== ENCOUNTER 2021-08-19 07:21 | Outpatient (CLI) | payer MEDICARE, OTHER ==
--- NOTE | 2021-08-19 08:12 | XRAY Report ---
PROCEDURE: Foot 2 View LT INDICATIONS: FOOT PAIN, LEFT TECHNIQUE: 2 views of the foot were acquired. COMPARISON: None FINDINGS: Bones: There is a erosion involving plantar and medial aspect of first metatarsal neck which may repr esent erosion secondary to osteomyelitis versus gout, suggest clinical correlation. Osteoarthritic ch anges also noted in first TMT joint, first MTP joint and first through fifth interphalangeal joints. No acute fracture or dislocation. No suspicious bony lesions. Soft tissues: No tibiotalar joint effusion. Achilles tendon appears normal. IMPRESSION: Osteoarthritic changes throughout left great toe with bony erosive changes involving first metatarsal neck as described above concerning for erosion secondary to gout. Osteomyelitis is less likely given lack of overlying ulceration. Additional subtle erosion also likely present in first proximal phalan geal head. No gross acute fracture or dislocation. Reviewed by: Ricardo Hernandez MD on 08/19/2021 8:11 AM PST Approved by: Ricardo Hernandez MD on 08/19/2021 8:11 AM PST Station ID: [id number]
[2021-08-19 14:29] LABS: BASOPHILS # (AUTO) 0.1 10^3/uL (0.0-0.1); BASOPHILS % (AUTO) 0.8 %; EOSINOPHILS # (AUTO) 0.3 10^3/uL (0.0-0.7); EOSINOPHILS % (AUTO) 3.6 %; HGB - HEMOGLOBIN 11.6 g/dL (12.0-16.0); LYMPHOCYTES # (AUTO) 1.9 10^3/uL (1.5-3.5); MEAN CORPUSCULAR HEMOGLOBIN 28.9 pg (27.0-31.0); MEAN CORPUSCULAR HGB CONC 31.4 g/dL (32.0-36.0); MEAN CORPUSCULAR VOLUME 92.3 fL (81.0-99.0); MEAN PLATELET VOLUME 9.9 fL (7.9-10.8); MONOCYTES # (AUTO) 0.5 10^3/uL (0.0-1.0); MONOCYTES % (AUTO) 5.2 %; NEUTROPHILS # (AUTO) 6.2 10^3/uL (1.5-6.6); NEUTROPHILS % (AUTO) 68.8 %; PLT - PLATELET COUNT 336 10^3/uL (130-450); RED BLOOD COUNT 4.01 10^6/uL (4.20-5.40); RED CELL DISTRIBUTION WIDTH 14.9 % (12.0-15.0); WHITE BLOOD COUNT 9.1 x10^3/uL (4.8-10.8)
[2021-08-19 14:47] LABS: ALBUMIN 3.9 g/dL (3.2-5.5); ALBUMIN/GLOBULIN RATIO 1.1 (1.0-2.2); ALKALINE PHOSPHATASE 44 IU/L (42-121); ALT ALANINE AMINOTRANSFERASE 15 IU/L (10-60); AST ASPARTATE AMINOTRANSFERASE 15 IU/L (10-42); BILIRUBIN,TOTAL 0.7 mg/dL (0.2-1.0); BUN - BLOOD UREA NITROGEN 42 mg/dL (6-20); CALCIUM 9.8 mg/dL (8.5-10.3); CARBON DIOXIDE - CO2 24 mmol/L (21-32); CHLORIDE 104 mmol/L (101-111); CHOL/HDL RATIO 3.7 (<4.4); CHOLESTEROL 206 mg/dL; CREATININE 1.6 mg/dL (0.4-1.0); GFR - MDRD 32 (>89); GLUCOSE 149 mg/dL (70-100); HDL CHOLESTEROL 56 mg/dL; LDL CHOLESTEROL,CALCULATED 99 mg/dL; LDL/HDL RATIO 1.8 (<4.4); POTASSIUM 3.4 mmol/L (3.5-5.0); SODIUM 136 mmol/L (135-145); TOTAL PROTEIN 7.4 g/dL (6.7-8.2); TRIGLYCERIDES 257 mg/dL; URIC ACID 8.8 mg/dL (2.6-7.2); VLDL CHOLESTEROL 51 mg/dL
[2021-08-19 14:56] LABS: T4 (THYROXINE) 6.42 ug/dL (6.09-12.23)
[2021-08-19 14:59] LABS: THYROID STIMULATING HORMONE 4.79 uIU/mL (0.34-5.60)
[2021-08-19 15:19] LABS: CRP - C-REACTIVE PROTEIN < 1.0 mg/dL (0-1.0)
== END 2021-08-19 07:22 | disposition home or self-care (01) ==
LOC: DI.S 07:21
PROVIDERS: ATTEND Registered Nurse
DX: M19.072 Primary osteoarthritis, left ankle and foot (principal); R53.83 Other fatigue; E78.5 Hyperlipidemia, unspecified; Z79.899 Other long term (current) drug therapy
CPT/HCPCS: 36415; 80053; 80061; 83721; 84436; 84443; 84480; 84550; 85025; 85651; 86140

== ENCOUNTER 2021-09-17 13:17 | Outpatient (CLI) | payer MEDICARE, OTHER ==
[2021-09-17 14:16] VITALS: BP 128/75
--- NOTE | 2021-09-17 14:16 | SLEEP CARE CONSULTATION ---
Information from patient questionnaire entered by Aye Ruiz MA. I have reviewed and concur with the information entered by Aye Ruiz MA. This document represents the service I personally performed and the decisions made by Indira borrego Caren J, ARNP. History of Present Illness Service Date and Time: 09/17/2021 1317 Reason for Visit: New patient (ONSET 08/2001, NO PRIORS, ) Chief Complaint: reports: Insomnia, Unrefreshed sleep, Snoring, Excessive dayti me sleepiness, Fatigue, Frequent awakenings at night Date of Onset: MANY YEARS Usual bedtime: 8-10 PM Time it takes to fall asleep: HOURS (SOMETIMES FAST) Snores at night: Yes Observed to quit breathing while asleep: No Number of times waking at night: 3-4 Reasons for waking at night: reports: Pain, Bathroom, Other (unknown reason). denies: Choking, Snoring, Gasping for air Toss, Turn, or Twitch while sleeping: Yes (had complaints about her restlessness; RLS) Recalls having dreams: Yes Usually gets out of bed at: [id number] Feels refreshed in the morning: No (by 0900 she wants to lay down and rest) Morning headache: No Sleepy or fatigued during the day: Yes Ever fallen asleep while driving: No Takes day naps: Yes (4-5 times a week) Dreams during day naps: No Prior sleep studies: No Additional HPI information: I had the pleasure of seeing RAHEEL VIZCAINO today regarding the possibility of her having a sleep disorder. Her current complaints are sleepiness, fatigue, frequent night awakenings, insomnia, snoring and unrefreshed sleep. She states that she has trouble sleeping by waking up every couple hours. She will wake up and not be able to go to sleep. She has fibromyalgia and is tired during the day. She will lay down between 8-10 PM. She will sometimes lay awake for a couple hours and other times she will fall asleep quickly and wake up a couple hours later. She states she normally sleeps for about 3 hours at a time. She states she will take a nap 4-5 times a week. She is having some intense brain fog at home when trying to do her business. She had some medication adjustments that have improved her daytime fatigue some. - Parasomnia Symptoms Ever been unable to move upon waking from sleep: No Walks in sleep: No Talks in sleep: Yes Ever acted out dreams in sleep: Yes Ever felt weak in the knees when startled or emotional: No Bothered by creepy, crawly, restless sensations in legs: Yes (has RLS, collapsed disc issue in back too) Problems with memory or concentration: Yes (brain fog; difficult to concentrate) Subjective Initial [place] Sleepiness Scale score: 11 (09/10) Past Medical History Past Medical History: reports: Hypertension, Claustrophobia, Diabetes (pre- diabetes; blood pressure meds), Arthritis, Fibromyalgia, Depression Social History 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 Patient is Single and lives in . Have you smoked in the past 12 months: No Cigarettes per day (20/pack): 20 Years of smokin Quit date: 2006 Smoking Pack Years: 20.0 Alcohol use: Yes Alcohol amount and frequency: 1-2 MONTHLY Caffeine use: Yes Caffeine amount and frequency: 2-4 X DAILY Family History Family history of sleep disordered breathing: No Allergies and Home Medications Known drug allergies: Yes (Trace, EVELIO,) Home medication list reviewed: Yes Allergy and home medication list: Allergies Penicillins Allergy (Verified 06/24/19 01:22) Unknown I got lumps in my veins. Medications: Lisinopril 20 mg Glimepiride 1 mg Duloxetine 60 mg Vitamin B12 complex Vitamin D Review of Systems Weight gain over past 5 years: 30 Cardiovascular: reports: high blood pressure, leg or foot swelling Respiratory: reports: shortness of breath Gastrointestinal: reports: difficulty swallowing, diarrhea Neurological: reports: gait or balance problems Psychiatric: reports: depression, claustrophobia Ear/Nose/Throat: reports: wisdom teeth removed. denies: tonsillectomy Endocrine: reports: too hot or cold, increased appetite, increased urination Musculoskeletal: reports: joint pain, neck pain, back pain, joint swelling, muscle pain or cramping, mobility problems, other (RESTLESS LEG; arthritis; fibromyalgia) Physical Exam Vital signs obtained and entered by: JOSE ORTIZ Blood Pressure: 128/75 (LEFT, PULSE 90, RESP 18, ) Cuff size: wrist Heart Rate: 86 O2 Saturation: 96 (PAPER) Height: 5 ft 2 in Weight: 214 lb Body Mass Index: 39.1 BMI Classification: Obese Neck circumference: 14.5 (INCH) Mouth and throat: narrow oropharynx Soft palate: long Hard palate: normal Uvula: normal Uvula visualization: 25% Mallampati Class III Tongue: enlarged in size with teeth mejia on lateral edges Tonsils: 1+ Neck: normal w/o lymphadenopathy or thyromegaly Heart: regular rate and rhythm Lungs: clear bilaterally Impression and Plan 1. Suspected Obstructive Sleep Apnea-Hypopnea Syndrome, as suggested by a history of loud and irregular snoring, frequent awakening during the night, unrefreshed sleep, cognitive impairment, and excessive daytime sleepiness. Narr ow oropharynx and obesity are common predisposing factors for obstructive sleep apnea-hypopnea syndrome. I recommend proceeding to polysomnography to confirm the diagnosis and to assess severity. If the patient has significant sleep disordered breathing, a manual CPAP titration study will also be performed to find the optimal treatment pressure. I informed the patient of what the sleep studies involve and after some discussion, obtained agreement to proceed. The pathophysiology of obstructive sleep apnea-hypopnea syndrome was discussed with the patient and health risks of cardiovascular and cerebrovascular disease if not treated. Risks of drowsy driving discussed in detail and patient advised to avoid long distance driving and to tail puller at the first sign of drowsiness. Patient agreed to plan. * Schedule polysomnography +- manual CPAP titration study and return in 1-2 weeks after the study to discuss results. * Avoid long distance driving or driving when feeling sleepy. * Avoid alcohol, sedative and muscle relaxant around bedtime. * Attempt to lose weight. * Review instructions provided by trained office staff on how to prepare for the sleep study. * Return for follow-up after sleep study completed. Counseling Topics: Weight loss health impact Visit Type: In Office Time Spent with Patient (minutes): 40 Provider Statement: I spent 100% of the Face to Face Visit with the patient with greater than 50% spent counseling the patient and coordination of care.
== END 2021-09-17 13:18 | disposition home or self-care (01) ==
LOC: SC 13:17
PROVIDERS: ATTEND Nurse Practitioner Family
DX: G47.10 Hypersomnia, unspecified (principal); R53.83 Other fatigue; G47.8 Other sleep disorders; R06.83 Snoring; E11.9 Type 2 diabetes mellitus without complications; I10 Essential (primary) hypertension; F32.A Depression, unspecified; Z87.891 Personal history of nicotine dependence; E66.9 Obesity, unspecified; Z68.39 Body mass index [BMI] 39.0-39.9, adult
CPT/HCPCS: 99203; G0463; 99212

== ENCOUNTER 2021-09-30 15:39 | Emergency (ER) | payer MEDICARE, OTHER ==
[2021-09-30] MEDS ORDERED: ASPIRIN CHEW 81 MG TABLET PO STA (15:59)
[2021-09-30] MEDS ORDERED: HEPARIN 25000UNITS/500ML (D5W) 25,000 UNIT/500 ML BAG IV SCH (16:00)
--- NOTE | 2021-09-30 16:03 | ED Physician Documentation ---
PD HPI CHEST PAIN - Stated complaint Stated Complaint: CHEST PX - Chief complaint Chief Complaint: Cardiac - History obtained from History obtained from: Patient - Additional information Additional information: 71-year-old woman with history of fibromyalgia and type 2 diabetes is developed burning pain across her chest radiating into both armpits starting yesterday. Its been waxing and waning a bit. The most exertion she is done during that time is "peeling vegetables" so unclear if the pain is exertional per se. No history of heart problems that are known. She had a remotely negative stress test but its been many years. 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 : None HEENT: Chronic vision loss Psych: Depression Musculoskeletal: Osteoarthritis, Fibromyalgia Derm: None - Past Surgical History Past Surgical History: Yes Ortho: Other /CLERK TELEVISION PRODUCTION: Hysterectomy - Present Medications Home Medications: Ambulatory Orders Medication Instructions Recorded Confirmed FLUoxetine [PROzac] 40 mg PO DAILY 07/08/15 04/07/19 Gluc/MSM/C/Kingman/Manganes/Prim 1 tab PO DAILY 07/08/15 04/07/19 [Joint Support Complex Softgel] DULoxetine [Cymbalta] 30 mg PO DAILY 02/24/19 04/07/19 Glimepiride 1 mg PO DAILY 02/24/19 04/07/19 Meloxicam 7.5 mg PO BID 02/24/19 04/07/19 lisinopriL [Lisinopril] 20 mg PO DAILY 04/07/19 04/07/19 Hydrocodone/Acetaminophen 1 - 2 each PO Q6H PRN #14 tablet 06/24/19 [Hydrocodon-Acetaminophen 5-325] - Allergies Allergies/Adverse Reactions: Allergies Allergy/AdvReac Type Severity Reaction Status Date / Time diphenhydramine Allergy Anaphylaxis Verified 09/30/21 15:52 [From Benadryl] Penicillins Allergy Unknown Verified 06/24/19 01:22 - Social History Does the pt smoke?: No Smoking Status: Former smoker (quit 10 years ago) Does the pt drink ETOH?: No Does the pt have substance abuse?: No - Family History Family history: reports: Non contributory - Immunizations Immunizations are current?: No - POLST Patient has POLST: No PD ED PE NORMAL - Vitals Vital signs reviewed: Yes - General General: Alert and oriented X 3, No acute distress - HEENT HEENT: PERRL, EOMI - Neck Neck: Supple, no meningeal sign, No bony TTP - Cardiac Cardiac: RRR, No murmur - Respiratory Respiratory: No respiratory distress, Clear bilaterally - Abdomen Abdomen: Normal bowel sounds, Soft, Non tender - Back Back: No CVA TTP, No spinal TTP - Derm Derm: Normal color, Warm and dry - Extremities Extremities: No edema, No calf tenderness / cord - Neuro Neuro: Alert and oriented X 3, Normal speech Eye Opening: Spontaneous Motor: Obeys Commands Verbal: Oriented GCS Score: 15 Results - Vitals Vitals: Vital Signs - 24 hr 09/30/21 09/30/21 15:41 15:55 Temperature 36.0 C L 36.1 C L Heart Rate 78 78 Respiratory 18 17 Rate Blood Pressure 146/73 H 144/73 H O2 Saturation 98 98 Oxygen O2 Source Room air - EKG (time done) 1548 Rate: Rate (enter#) (75) Rhythm: NSR, LAE Miracle: Normal Intervals: Normal [place] Ischemia: ST elevation c/w ischemia (Inferiorly with depression in 1 and aVL) Computer interpretation: Agree with computer - Rads (name of study) Single view chest x-ray is unremarkable, no cardiomegaly or widened mediastinum Radiology: EMP read contemporaneously PD MEDICAL DECISION MAKING - ED course ED course: 71-year-old woman presents with typical angina and EKG concerning for an inferior STEMI with reciprocal ST depression in 1 and L. She was seen at the bedside and STEMI code was called and she was accepted to [facility] by Dr. Morales at approximately 1604. She was administered 6100 units of IV heparin bolus and drip as well as 324 mg of aspirin. [facility] was activated for transfer. - Critical Care Time(min): 35 Time Includes: Direct patient care, Review records, Reassess patient, Document care, Coordinate care, Medical consult, Family consult for tx dec Data interpretation: Labs, Pulse ox Procedures included in critical care time: Peripheral IV Procedures excluded from critical care time: EKG Departure - Departure Disposition: 02 Transfer Acute Care Hosp Clinical Impression: ST elevation myocardial infarction (STEMI) of inferior wall Condition: Critical
--- NOTE | 2021-09-30 16:10 | XRAY Report ---
PROCEDURE: Chest 1 View X-Ray INDICATIONS: Chest Pain TECHNIQUE: One view of the chest was acquired. COMPARISON: Chest x-ray 12/06/2020 FINDINGS: Surgical changes and devices: None. Lungs and pleura: No pleural effusions or pneumothorax. Lungs are clear. Mediastinum: Mediastinal contours appear normal. Heart size is mildly enlarged. Bones and chest wall: No suspicious bony lesions. Overlying soft tissues appear unremarkable. IMPRESSION: No acute pulmonary process. Reviewed by: Evita Collazo MD on 09/30/2021 4:08 PM PDT Approved by: Evita Collazo MD on 09/30/2021 4:08 PM PDT Station ID: [id number]
[2021-09-30 16:20] LABS: BASOPHILS # (AUTO) 0.1 10^3/uL (0.0-0.1); BASOPHILS % (AUTO) 0.6 %; EOSINOPHILS # (AUTO) 0.3 10^3/uL (0.0-0.7); EOSINOPHILS % (AUTO) 3.2 %; HCT - HEMATOCRIT 35.3 % (37.0-47.0); HGB - HEMOGLOBIN 11.2 g/dL (12.0-16.0); LYMPHOCYTES # (AUTO) 1.6 10^3/uL (1.5-3.5); LYMPHOCYTES % (AUTO) 16.3 %; MEAN CORPUSCULAR HEMOGLOBIN 28.9 pg (27.0-31.0); MEAN CORPUSCULAR HGB CONC 31.7 g/dL (32.0-36.0); MEAN PLATELET VOLUME 9.3 fL (7.9-10.8); MONOCYTES # (AUTO) 0.6 10^3/uL (0.0-1.0); MONOCYTES % (AUTO) 6.3 %; NEUTROPHILS # (AUTO) 7.1 10^3/uL (1.5-6.6); NEUTROPHILS % (AUTO) 73.2 %; PLT - PLATELET COUNT 284 10^3/uL (130-450); RED BLOOD COUNT 3.88 10^6/uL (4.20-5.40); RED CELL DISTRIBUTION WIDTH 14.8 % (12.0-15.0); WHITE BLOOD COUNT 9.7 x10^3/uL (4.8-10.8)
[2021-09-30 16:36] LABS: ALBUMIN 3.5 g/dL (3.2-5.5); BILIRUBIN,TOTAL 0.3 mg/dL (0.2-1.0); CALCIUM 9.2 mg/dL (8.5-10.3); CREATININE 1.2 mg/dL (0.4-1.0); POTASSIUM 4.4 mmol/L (3.5-5.0); TOTAL PROTEIN 7.1 g/dL (6.7-8.2)
[2021-09-30 16:37] VITALS: BP 120/66
== END 2021-09-30 16:35 | disposition short-term general hospital (02) ==
LOC: ED 15:39
DX: I21.3 ST elevation (STEMI) myocardial infarction of unspecified site (principal); Z87.891 Personal history of nicotine dependence
CPT/HCPCS: 36415; 71045; 80053; 83690; 84484; 85025; 93005; 96374; 99285; 99291; A9270

== ENCOUNTER 2022-01-02 07:19 | Outpatient (CLI) | payer MEDICARE, OTHER ==
[2022-01-02 14:45] LABS: BASOPHILS # (AUTO) 0.1 10^3/uL (0.0-0.1); BASOPHILS % (AUTO) 0.8 %; EOSINOPHILS # (AUTO) 0.5 10^3/uL (0.0-0.7); EOSINOPHILS % (AUTO) 5.8 %; HCT - HEMATOCRIT 37.4 % (37.0-47.0); HGB - HEMOGLOBIN 11.5 g/dL (12.0-16.0); LYMPHOCYTES # (AUTO) 1.5 10^3/uL (1.5-3.5); LYMPHOCYTES % (AUTO) 16.7 %; MEAN CORPUSCULAR HEMOGLOBIN 27.1 pg (27.0-31.0); MEAN CORPUSCULAR HGB CONC 30.7 g/dL (32.0-36.0); MEAN CORPUSCULAR VOLUME 88.2 fL (81.0-99.0); MEAN PLATELET VOLUME 10.1 fL (7.9-10.8); MONOCYTES # (AUTO) 0.6 10^3/uL (0.0-1.0); MONOCYTES % (AUTO) 6.3 %; NEUTROPHILS # (AUTO) 6.3 10^3/uL (1.5-6.6); NEUTROPHILS % (AUTO) 70.2 %; PLT - PLATELET COUNT 303 10^3/uL (130-450); RED BLOOD COUNT 4.24 10^6/uL (4.20-5.40)
[2022-01-02 15:34] LABS: ESTIMATED AVERAGE GLUCOSE 160 mg/dL (70-100); HEMOGLOBIN A1c% 7.2 % (4.27-6.07)
[2022-01-02 15:59] LABS: ALBUMIN 3.7 g/dL (3.2-5.5); ALBUMIN/GLOBULIN RATIO 1.1 (1.0-2.2); ALKALINE PHOSPHATASE 72 IU/L (42-121); ALT ALANINE AMINOTRANSFERASE 28 IU/L (10-60); AST ASPARTATE AMINOTRANSFERASE 18 IU/L (10-42); BILIRUBIN,TOTAL 0.4 mg/dL (0.2-1.0); BUN - BLOOD UREA NITROGEN 37 mg/dL (6-20); CALCIUM 10.2 mg/dL (8.5-10.3); CARBON DIOXIDE - CO2 25 mmol/L (21-32); CHLORIDE 106 mmol/L (101-111); CHOL/HDL RATIO 2.4 (<4.4); CHOLESTEROL 133 mg/dL; CREATININE 1.2 mg/dL (0.4-1.0); GFR - MDRD 44 (>89); GLUCOSE 157 mg/dL (70-100); HDL CHOLESTEROL 55 mg/dL; LDL CHOLESTEROL,CALCULATED 56 mg/dL; POTASSIUM 4.5 mmol/L (3.5-5.0); SODIUM 139 mmol/L (135-145); TOTAL PROTEIN 7.1 g/dL (6.7-8.2); TRIGLYCERIDES 110 mg/dL; VLDL CHOLESTEROL 22 mg/dL
[2022-01-02 16:23] LABS: CREATININE,URINE 175.8 mg/dL; MICROALBUM/CREATININE RATIO,UR 2.3 ug/mg (<30.0); MICROALBUMIN,URINE 0.4 mg/dL (0-300.0)
== END 2022-01-02 07:20 | disposition home or self-care (01) ==
LOC: LAB.S 07:19
PROVIDERS: ATTEND Registered Nurse
DX: E11.9 Type 2 diabetes mellitus without complications (principal); E78.5 Hyperlipidemia, unspecified; I10 Essential (primary) hypertension
CPT/HCPCS: 36415; 80053; 80061; 82043; 82570; 83036; 83721; 85025

== ENCOUNTER 2022-01-10 09:06 | Outpatient (CLI) | payer MEDICARE, OTHER | END 2022-01-10 09:07 | disposition home or self-care (01) | LOC: LAB.S 09:06 | PROVIDERS: ATTEND Registered Nurse | DX: Z53.9 Procedure and treatment not carried out, unspecified reason (principal) | CPT/HCPCS: 36415; 82607; 82728; 82746; 83540; 84466; 85025; 85045 ==

== ENCOUNTER 2022-01-13 13:40 | Outpatient (CLI) | payer MEDICARE, OTHER ==
[2022-01-13 20:04] LABS: BASOPHILS # (AUTO) 0.1 10^3/uL (0.0-0.1); BASOPHILS % (AUTO) 0.6 %; EOSINOPHILS # (AUTO) 0.5 10^3/uL (0.0-0.7); EOSINOPHILS % (AUTO) 5.1 %; HCT - HEMATOCRIT 37.4 % (37.0-47.0); HGB - HEMOGLOBIN 11.5 g/dL (12.0-16.0); LYMPHOCYTES # (AUTO) 1.5 10^3/uL (1.5-3.5); LYMPHOCYTES % (AUTO) 14.6 %; MEAN CORPUSCULAR HEMOGLOBIN 27.5 pg (27.0-31.0); MEAN CORPUSCULAR HGB CONC 30.7 g/dL (32.0-36.0); MEAN CORPUSCULAR VOLUME 89.5 fL (81.0-99.0); MEAN PLATELET VOLUME 10.3 fL (7.9-10.8); MONOCYTES # (AUTO) 0.8 10^3/uL (0.0-1.0); MONOCYTES % (AUTO) 7.3 %; NEUTROPHILS # (AUTO) 7.7 10^3/uL (1.5-6.6); NEUTROPHILS % (AUTO) 72.2 %; PLT - PLATELET COUNT 312 10^3/uL (130-450); RED BLOOD COUNT 4.18 10^6/uL (4.20-5.40); RED CELL DISTRIBUTION WIDTH 15.8 % (12.0-15.0); WHITE BLOOD COUNT 10.6 x10^3/uL (4.8-10.8)
[2022-01-13 20:31] LABS: % IRON SATURATION 7 % (20-50); IRON 27 ug/dL (28-170); TOTAL IRON BINDING CAPACITY 393 ug/dL (250-450); TRANSFERRIN 281 mg/dL (192-382)
[2022-01-13 20:44] LABS: FERRITIN 18.5 ng/mL (11.0-306.8)
[2022-01-13 20:47] LABS: FOLATE 17.75 ng/mL (5.90 - >24.8)
== END 2022-01-13 13:41 | disposition home or self-care (01) ==
LOC: LAB.S 13:40
PROVIDERS: ATTEND Registered Nurse
DX: R53.83 Other fatigue (principal); E11.9 Type 2 diabetes mellitus without complications
CPT/HCPCS: 36415; 82607; 82728; 82746; 83540; 84466; 85025

== ENCOUNTER 2022-02-18 07:24 | Outpatient (CLI) | payer MEDICARE, OTHER ==
[2022-02-18 15:50] LABS: BASOPHILS # (AUTO) 0.1 10^3/uL (0.0-0.1); EOSINOPHILS # (AUTO) 0.6 10^3/uL (0.0-0.7); EOSINOPHILS % (AUTO) 8.8 %; HCT - HEMATOCRIT 37.6 % (37.0-47.0); HGB - HEMOGLOBIN 11.4 g/dL (12.0-16.0); LYMPHOCYTES # (AUTO) 1.6 10^3/uL (1.5-3.5); LYMPHOCYTES % (AUTO) 22.6 %; MEAN CORPUSCULAR HGB CONC 30.3 g/dL (32.0-36.0); MEAN CORPUSCULAR VOLUME 88.9 fL (81.0-99.0); MEAN PLATELET VOLUME 9.9 fL (7.9-10.8); MONOCYTES # (AUTO) 0.5 10^3/uL (0.0-1.0); MONOCYTES % (AUTO) 6.5 %; NEUTROPHILS # (AUTO) 4.2 10^3/uL (1.5-6.6); NEUTROPHILS % (AUTO) 60.8 %; PLT - PLATELET COUNT 283 10^3/uL (130-450); RED BLOOD COUNT 4.23 10^6/uL (4.20-5.40); RED CELL DISTRIBUTION WIDTH 16.7 % (12.0-15.0); WHITE BLOOD COUNT 6.9 x10^3/uL (4.8-10.8)
[2022-02-18 16:11] LABS: ALBUMIN 3.6 g/dL (3.2-5.5); ALKALINE PHOSPHATASE 74 IU/L (42-121); ALT ALANINE AMINOTRANSFERASE 16 IU/L (10-60); AST ASPARTATE AMINOTRANSFERASE 12 IU/L (10-42); BILIRUBIN,TOTAL 0.4 mg/dL (0.2-1.0); BUN - BLOOD UREA NITROGEN 22 mg/dL (6-20); CALCIUM 9.2 mg/dL (8.5-10.3); CARBON DIOXIDE - CO2 26 mmol/L (21-32); CHLORIDE 104 mmol/L (101-111); CHOL/HDL RATIO 2.5 (<4.4); CHOLESTEROL 134 mg/dL; CREATININE 1.2 mg/dL (0.4-1.0); GFR - MDRD 44 (>89); GLUCOSE 147 mg/dL (70-100); HDL CHOLESTEROL 54 mg/dL; LDL CHOLESTEROL,CALCULATED 54 mg/dL; POTASSIUM 4.1 mmol/L (3.5-5.0); SODIUM 138 mmol/L (135-145); TOTAL PROTEIN 7.1 g/dL (6.7-8.2); TRIGLYCERIDES 128 mg/dL; VLDL CHOLESTEROL 26 mg/dL
[2022-02-18 16:26] LABS: THYROID STIMULATING HORMONE 3.65 uIU/mL (0.34-5.60)
[2022-02-18 20:57] LABS: ESTIMATED AVERAGE GLUCOSE 160 mg/dL (70-100); HEMOGLOBIN A1c% 7.2 % (4.27-6.07)
== END 2022-02-18 07:25 | disposition home or self-care (01) ==
LOC: LAB.S 07:24
PROVIDERS: ATTEND Internal Medicine Cardiovascular Disease
DX: I25.10 Atherosclerotic heart disease of native coronary artery without angina pectoris (principal); I10 Essential (primary) hypertension; E78.2 Mixed hyperlipidemia; E11.9 Type 2 diabetes mellitus without complications
CPT/HCPCS: 36415; 80053; 80061; 83036; 83721; 84443; 85025

== ENCOUNTER 2022-03-31 10:48 | Outpatient (CLI) | payer MEDICARE, OTHER ==
--- NOTE | 2022-04-01 11:34 | Mammography Report ---
BILATERAL DIGITAL SCREENING MAMMOGRAM 3D/2D: 03/31/2022 CLINICAL: Routine screening. Comparison is made to exams dated: 10/06/2015 mammogram, 10/18/2014 mammogram - [facility], 10/11/2013 mammogram, 10/11/2013 mammogram, and 05/05/2012 mammogram - [facility]. Both breasts are almost entirely fatty (category a/<25% glandular tissue). There is a new irregular asymmetry with a circumscribed margin in the right breast middle depth super ior region seen on the mediolateral oblique view only. No other significant masses, calcifications, or other findings are seen in either breast. IMPRESSION: INCOMPLETE: NEEDS ADDITIONAL IMAGING EVALUATION The new irregular asymmetry in the right breast is indeterminate. Additional views with possible ult rasound are recommended. Based on the Tyrer Cuzick model (a risk assessment model) the patients lifetime risk is 2.0% and her 10 year risk is 1.7%. According to the ACR, ACS, and NCCN guidelines, an annual breast MRI exam al g with mammogram is recommended if the patients lifetime risk is 20% or greater. This exam was interpreted at Station ID: [id number]. NOTE: For mammograms, a report in lay terms will be sent to the patient. Approximately 15% of breast malignancies will not be visualized mammographically. In the management of a palpable breast mass, a negative mammogram must not discourage biopsy of a clinically suspicious lesion. Electronically Signed By: Willie Lares M.D. acr/:03/31/2022 12:33:43 ACR BI-RADS Category 0: Incomplete 3340F PARENCHYMAL PATTERN: (F) - The breast(s) demonstrate(s) diffuse fatty replacement. BI-RADS CATEGORY: (0) - 0 Mammo and [place] [id number] Immediate follow-up LATERALITY: (R)
== END 2022-03-31 10:49 | disposition home or self-care (01) ==
LOC: DI 10:48
PROVIDERS: ATTEND Registered Nurse
DX: Z12.31 Encounter for screening mammogram for malignant neoplasm of breast (principal); R92.8 Other abnormal and inconclusive findings on diagnostic imaging of breast

== ENCOUNTER 2022-04-25 10:33 | Outpatient (CLI) | payer MEDICARE, OTHER ==
--- NOTE | 2022-04-28 09:44 | Mammography Report ---
UNILATERAL RIGHT DIGITAL DIAGNOSTIC MAMMOGRAM 3D/2D WITH SPOT COMPRESSION: 04/25/2022 CLINICAL: Patient returns today to evaluate an asymmetry in the right breast. Comparison is made to exams dated: 03/31/2022 mammogram, 10/06/2015 mammogram, and 10/18/2014 mammogra m - [facility]. There are scattered areas of fibroglandular density in the right breast (category b / 25%-50% glandul ar tissue). The previously seen asymmetry in the right breast is no longer visualized, presumably secondary to rogers perimposed fibroglandular breast tissue on the prior exam. No significant masses, calcifications, or other findings are seen in the breast. IMPRESSION: NEGATIVE There is no mammographic evidence of malignancy. Return to annual mammogram screening schedule is rec ommended. Based on the Tyrer Cuzick model (a risk assessment model) the patients lifetime risk is 1.8% and her 10 year risk is 1.5%. According to the ACR, ACS, and NCCN guidelines, an annual breast MRI exam al g with mammogram is recommended if the patients lifetime risk is 20% or greater. This exam was interpreted at Station ID: [id number]. NOTE: For mammograms, a report in lay terms will be sent to the patient. Approximately 15% of breast malignancies will not be visualized mammographically. In the management of a palpable breast mass, a negative mammogram must not discourage biopsy of a clinically suspicious lesion. Electronically Signed By: Vasu chang/penrad:04/25/2022 16:55:32 ACR BI-RADS Category 1: Negative 3341F PARENCHYMAL PATTERN: (A) - The breast(s) demonstrate(s) scattered fibroglandular densities. BI-RADS CATEGORY: (1) - 1 Mammogram [id number] return to screening LATERALITY: (B)
== END 2022-04-25 10:34 | disposition home or self-care (01) ==
LOC: DI 10:33
PROVIDERS: ATTEND Registered Nurse
DX: R92.8 Other abnormal and inconclusive findings on diagnostic imaging of breast (principal)

== ENCOUNTER 2022-07-24 07:04 | Outpatient (CLI) | payer MEDICARE, OTHER ==
[2022-07-24 14:53] LABS: BASOPHILS # (AUTO) 0.1 10^3/uL (0.0-0.1); BASOPHILS % (AUTO) 0.9 %; EOSINOPHILS # (AUTO) 0.6 10^3/uL (0.0-0.7); EOSINOPHILS % (AUTO) 7.4 %; HCT - HEMATOCRIT 40.6 % (37.0-47.0); HGB - HEMOGLOBIN 12.1 g/dL (12.0-16.0); LYMPHOCYTES % (AUTO) 24.6 %; MEAN CORPUSCULAR HEMOGLOBIN 27.2 pg (27.0-31.0); MEAN CORPUSCULAR HGB CONC 29.8 g/dL (32.0-36.0); MEAN CORPUSCULAR VOLUME 91.2 fL (81.0-99.0); MEAN PLATELET VOLUME 9.7 fL (7.9-10.8); MONOCYTES # (AUTO) 0.5 10^3/uL (0.0-1.0); MONOCYTES % (AUTO) 5.6 %; PLT - PLATELET COUNT 315 10^3/uL (130-450); RED BLOOD COUNT 4.45 10^6/uL (4.20-5.40); RED CELL DISTRIBUTION WIDTH 16.3 % (12.0-15.0); WHITE BLOOD COUNT 8.2 x10^3/uL (4.8-10.8)
[2022-07-24 15:12] LABS: ALBUMIN 3.7 g/dL (3.2-5.5); ALBUMIN/GLOBULIN RATIO 1.1 (1.0-2.2); BILIRUBIN,TOTAL 0.7 mg/dL (0.2-1.0); CALCIUM 8.7 mg/dL (8.5-10.3); CREATININE 1.1 mg/dL (0.4-1.0); POTASSIUM 4.6 mmol/L (3.5-5.0); TOTAL PROTEIN 7.2 g/dL (6.7-8.2)
[2022-07-24 15:27] LABS: THYROID STIMULATING HORMONE 3.79 uIU/mL (0.34-5.60)
[2022-07-24 15:29] LABS: FREE T3 2.48 pg/mL (2.5-3.9); FREE T4 (FREE THYROXINE) 0.71 ng/dL (0.58-1.64)
[2022-07-24 20:55] LABS: ESTIMATED AVERAGE GLUCOSE 163 mg/dL (70-100); HEMOGLOBIN A1c% 7.3 % (4.27-6.07)
== END 2022-07-24 07:05 | disposition home or self-care (01) ==
LOC: LAB.S 07:04
PROVIDERS: ATTEND Registered Nurse
DX: E11.9 Type 2 diabetes mellitus without complications (principal); Z79.899 Other long term (current) drug therapy; R23.2 Flushing; R53.83 Other fatigue
CPT/HCPCS: 36415; 80053; 83036; 84439; 84443; 84480; 84481; 85025

== ENCOUNTER 2022-07-31 12:41 | Outpatient (CLI) | payer MEDICARE, OTHER ==
--- NOTE | 2022-07-31 18:35 | MRI Report ---
PROCEDURE: MRI lumbar spine without contrast INDICATIONS: LUMBAR SPONDYLOSIS TECHNIQUE: Noncontrast sagittal T1 spin echo and T2 fast echo, sagittal STIR, axial T1 and T2 fast spin echo thr ough the lumbar spine. In cases with scoliosis, additional coronal T2 fast spin echo may be performe d. COMPARISON: None. FINDINGS: Image quality: Excellent. Alignment and Curvature: There is normal bony alignment. Bone Marrow: Degenerative endplate changes noted with edematous Modic type I endplate changes at L2-3 Spinal Cord: Conus medullaris terminates at the L1 level. Visualized cord demonstrates normal signa l and size. Paraspinous Soft Tissues: No paravertebral masses. Left renal simple cyst T12-L1: Normal in appearance. L1-L2: Normal in appearance. L2-L3: Disc space narrowing with circumferential disc bulge and hypertrophic facet joints results in mild central stenosis. Mild bilateral foraminal stenosis L3-L4: Disc space narrowing and circumferential disc bulge with hypertrophic facet joints results i n moderate central stenosis. Moderate bilateral foraminal stenosis L4-L5: Disc space narrowing and circumferential disc bulge with hypertrophic facet joints and dorsa l epidural fat all combine to result in moderate central stenosis. Severe left and moderate right for aminal stenosis L5-S1: Disc space narrowing and circumferential disc bulge without central or foraminal stenosis IMPRESSION: Multilevel degenerative disc disease and arthropathy results in varying degrees of central and forami nal stenosis including moderate central stenosis L3-4 and L4-5 Reviewed by: Ruslan Morrison MD on 07/31/2022 5:34 PM AKST Approved by: Ruslan Morrison MD on 07/31/2022 5:34 PM AKST Station ID: [id number]
== END 2022-07-31 12:42 | disposition home or self-care (01) ==
LOC: DI 12:41
PROVIDERS: ATTEND Physical Medicine & Rehabilitation
DX: M47.816 Spondylosis without myelopathy or radiculopathy, lumbar region (principal); M51.36 Other intervertebral disc degeneration, lumbar region; M48.061 Spinal stenosis, lumbar region without neurogenic claudication

== ENCOUNTER 2022-10-14 07:20 | Outpatient (CLI) | payer MEDICARE, OTHER ==
[2022-10-14 15:01] LABS: CREATININE 1.5 mg/dL (0.4-1.0)
[2022-10-14 15:13] LABS: T4 (THYROXINE) 8.9 ug/dL (6.09-12.23)
[2022-10-14 15:17] LABS: THYROID STIMULATING HORMONE 1.07 uIU/mL (0.34-5.60)
[2022-10-14 15:24] LABS: CREATININE,URINE 230.4 mg/dL
[2022-10-14 20:20] LABS: ESTIMATED AVERAGE GLUCOSE 160 mg/dL (70-100); HEMOGLOBIN A1c% 7.2 % (4.27-6.07)
== END 2022-10-14 07:21 | disposition home or self-care (01) ==
LOC: LAB.S 07:20
PROVIDERS: ATTEND Registered Nurse
DX: E11.9 Type 2 diabetes mellitus without complications (principal); E03.9 Hypothyroidism, unspecified
CPT/HCPCS: 36415; 80048; 82043; 82570; 83036; 84436; 84443; 84480

== ENCOUNTER 2022-11-21 06:19 | Day surgery (SDC) | payer MEDICARE, OTHER ==
[2022-11-21] MEDS ORDERED: LACTATED RINGERS 1,000 ML IV ONE ×2 (06:25→08:08)
--- NOTE | 2022-11-21 07:25 | ANESTHESIA ---
Pre-Anesthesia VS, & Labs - Diagnosis history of polyps - Procedure colonoscopy Vital Signs: Temp Pulse Resp BP Pulse Ox O2 Flow Rate 36.3 C L 63 16 139/88 H 96 0 11/21/22 06:44 11/21/22 06:44 11/21/22 06:44 11/21/22 06:44 11/21/22 06:44 11/21/22 06:44 Height: 5 ft 1 in Weight (kg): 94 kg Body Mass Index: 39.1 BMI Classification: Obese - NPO Other (prep as directed) - Is Patient ?: No - Lab Results Current Lab Results: Laboratory Tests 11/21/22 06:45: POC Whole Bld Glucose 133 H Home Medications and Allergies Home Medications: Ambulatory Orders Aspirin Chewable [St [place] Aspirin] 1 tab PO DAILY 11/20/22 Atorvastatin [Lipitor] 1 tab PO DAILY 11/20/22 Cholecalciferol (Vitamin D3) [Vitamin D3] 1 cap PO DAILY 11/20/22 Cyanocobalamin (Vitamin B-12) [B-12] 0.5 tbs PO DAILY 11/20/22 Ferrous Sulfate [Slow Fe] 1 tab PO DAILY 11/20/22 Levothyroxine [Synthroid] 0.5 tab PO DAILY 11/20/22 Magnesium Citrate and Oxide [Magnesium] 1 cap PO DAILY 11/20/22 Nitroglycerin [Nitrostat] 1 tab ORAL PRN PRN 11/20/22 Vitamin E Acetate [Vitamin E] 1 cap PO DAILY 11/20/22 DULoxetine [Cymbalta] 60 mg PO DAILY 02/24/19 lisinopriL [Lisinopril] 20 mg PO DAILY 04/07/19 Aspirin Chewable [[place] Aspirin] 1 tab PO DAILY 11/20/22 Atorvastatin [Lipitor] 1 tab PO DAILY 11/20/22 Cholecalciferol (Vitamin D3) [Vitamin D3] 1 cap PO DAILY 11/20/22 Cyanocobalamin (Vitamin B-12) [B-12] 0.5 tbs PO DAILY 11/20/22 Ferrous Sulfate [Slow Fe] 1 tab PO DAILY 11/20/22 Levothyroxine [Synthroid] 0.5 tab PO DAILY 11/20/22 Magnesium Citrate and Oxide [Magnesium] 1 cap PO DAILY 11/20/22 Nitroglycerin [Nitrostat] 1 tab ORAL PRN PRN 11/20/22 Vitamin E Acetate [Vitamin E] 1 cap PO DAILY 11/20/22 Allergies/Adverse Reactions: Allergies Allergy/AdvReac Type Severity Reaction Status Date / Time diphenhydramine Allergy Anaphylaxis Verified 09/30/21 15:52 [From Benadryl] Penicillins Allergy Unknown Verified 06/24/19 01:22 vancomycin Allergy Hives Verified 11/20/22 12:24 Anes History & Medical History - Anesthetic History Anesthesia Complications: reports: No previous complications - Medical History Cardiovascular: reports: [place] Pulmonary: reports: None Gastrointestinal: reports: None Urinary: reports: None Neuro: reports: None Musculoskeletal: reports: Osteoarthritis, Fibromyalgia Endocrine/Autoimmune: reports: Type 2 diabetes Blood Disorders: reports: None Skin: reports: None Smoking Status: Former smoker (quit 10 years ago) - Surgical History General: Cardiothoracic: reports: Coronary stent Gynecologic: reports: Hysterectomy Orthopedic: reports: Knee replacement, Other Exam General: Alert, Oriented x3, Cooperative Dental: WNL, Dentures full Upper, Partials Lower Mouth Opening: Greater than 4 Fingerbreadths Neck Mobility: Normal Mallampati classification: III Thyromental Distance: greater than 6 cm Respiratory: Lungs clear Cardiovascular: Regular rate, Normal S1, Normal S2 Plan Anesthesia Type: Total IV Consent for Procedure(s) Verified and Reviewed: Yes Code Status: Attempt Resuscitation ASA classification: 3-Severe systemic disease Is this case an emergency?: No
[2022-11-21] MEDS ORDERED: PROPOFOL 500 MG/50 ML 500 MG/50 ML VIAL ONE (07:28)
[2022-11-21] MEDS ORDERED: LIDOCAINE-PF 2% 10 ML AMP SUBQ ONE (07:41)
[2022-11-21 08:39] VITALS: BP 147/71
--- NOTE | 2022-11-21 08:46 | ANESTHESIA POST OP EVALUATION ---
Anesthesia Post Eval - Post Anesthesia Eval Vitals: Last Vital Signs Temp 36.2 C L 11/21/22 08:30 Pulse 60 11/21/22 08:30 Resp 14 11/21/22 08:30 BP 147/71 H 11/21/22 08:30 Pulse Ox 100 11/21/22 08:30 O2 Flow Rate 0 11/21/22 06:44 CV Function Including HR & BP: Stable Pain Control: Satisfactory Nausea & Vomiting: Negative Mental Status: Baseline Respiratory Status: Airway Patent Hydration Status: Satisfactory Anesthesia Complications: None
== END 2022-11-21 06:20 | disposition home or self-care (01) ==
LOC: SDS 06:19
PROVIDERS: ATTEND Surgery
DX: Z12.11 Encounter for screening for malignant neoplasm of colon (principal); K57.30 Diverticulosis of large intestine without perforation or abscess without bleeding; Z86.010 Personal history of colon polyps; E66.9 Obesity, unspecified; Z68.39 Body mass index [BMI] 39.0-39.9, adult; I25.2 Old myocardial infarction; E11.9 Type 2 diabetes mellitus without complications; Z95.5 Presence of coronary angioplasty implant and graft; Z87.891 Personal history of nicotine dependence
CPT/HCPCS: G0105; J7120

== ENCOUNTER 2022-12-29 07:43 | Outpatient (CLI) | payer MEDICARE, OTHER ==
[2022-12-29 15:07] LABS: CREATININE 1.1 mg/dL (0.4-1.0); POTASSIUM 5.1 mmol/L (3.5-5.0)
[2022-12-29 21:19] LABS: ESTIMATED AVERAGE GLUCOSE 148 mg/dL (70-100); HEMOGLOBIN A1c% 6.8 % (4.27-6.07)
== END 2022-12-29 07:44 | disposition home or self-care (01) ==
LOC: LAB.S 07:43
PROVIDERS: ATTEND Registered Nurse
DX: I12.9 Hypertensive chronic kidney disease with stage 1 through stage 4 chronic kidney disease, or unspecified chronic kidney disease (principal); E11.22 Type 2 diabetes mellitus with diabetic chronic kidney disease; N18.4 Chronic kidney disease, stage 4 (severe)
CPT/HCPCS: 36415; 80048; 83036

== ENCOUNTER 2023-01-14 13:25 | Outpatient (CLI) | payer MEDICARE, OTHER | END 2023-01-14 13:26 | disposition home or self-care (01) | LOC: LAB.S 13:25 | PROVIDERS: ATTEND Registered Nurse | DX: M25.50 Pain in unspecified joint (principal) | CPT/HCPCS: 36415; 84550 ==

== ENCOUNTER 2023-02-04 11:32 | Outpatient (CLI) | payer MEDICARE, OTHER ==
[2023-02-04 15:05] LABS: BASOPHILS # (AUTO) 0.1 10^3/uL (0.0-0.1); BASOPHILS % (AUTO) 0.7 %; EOSINOPHILS # (AUTO) 0.4 10^3/uL (0.0-0.7); EOSINOPHILS % (AUTO) 4.2 %; HCT - HEMATOCRIT 38.5 % (37.0-47.0); HGB - HEMOGLOBIN 11.9 g/dL (12.0-16.0); LYMPHOCYTES # (AUTO) 1.6 10^3/uL (1.5-3.5); LYMPHOCYTES % (AUTO) 17.8 %; MEAN CORPUSCULAR HEMOGLOBIN 28.3 pg (27.0-31.0); MEAN CORPUSCULAR HGB CONC 30.9 g/dL (32.0-36.0); MEAN CORPUSCULAR VOLUME 91.7 fL (81.0-99.0); MEAN PLATELET VOLUME 10.5 fL (7.9-10.8); MONOCYTES # (AUTO) 0.5 10^3/uL (0.0-1.0); MONOCYTES % (AUTO) 5.7 %; NEUTROPHILS # (AUTO) 6.2 10^3/uL (1.5-6.6); NEUTROPHILS % (AUTO) 71.3 %; PLT - PLATELET COUNT 280 10^3/uL (130-450); WHITE BLOOD COUNT 8.7 x10^3/uL (4.8-10.8)
[2023-02-04 15:18] LABS: ALBUMIN 3.5 g/dL (3.2-5.5); BILIRUBIN,TOTAL 0.5 mg/dL (0.2-1.0); CALCIUM 9.2 mg/dL (8.5-10.3); CREATININE 1.2 mg/dL (0.4-1.0); POTASSIUM 4.8 mmol/L (3.5-5.0); TOTAL PROTEIN 7.1 g/dL (6.7-8.2)
[2023-02-04 16:44] LABS: RHEUMATOID FACTOR NEGATIVE (Negative)
== END 2023-02-04 11:33 | disposition home or self-care (01) ==
LOC: LAB.S 11:32
PROVIDERS: ATTEND Nurse Practitioner
DX: M25.50 Pain in unspecified joint (principal)
CPT/HCPCS: 36415; 80053; 84550; 85025; 85651; 86038; 86140; 86430

== ENCOUNTER 2023-02-24 07:36 | Outpatient (CLI) | payer MEDICARE, OTHER ==
[2023-02-24 14:35] LABS: BASOPHILS # (AUTO) 0.1 10^3/uL (0.0-0.1); BASOPHILS % (AUTO) 0.7 %; EOSINOPHILS # (AUTO) 0.4 10^3/uL (0.0-0.7); EOSINOPHILS % (AUTO) 5.4 %; HCT - HEMATOCRIT 38.9 % (37.0-47.0); HGB - HEMOGLOBIN 11.7 g/dL (12.0-16.0); LYMPHOCYTES # (AUTO) 1.8 10^3/uL (1.5-3.5); LYMPHOCYTES % (AUTO) 24.5 %; MEAN CORPUSCULAR HEMOGLOBIN 27.8 pg (27.0-31.0); MEAN CORPUSCULAR HGB CONC 30.1 g/dL (32.0-36.0); MEAN CORPUSCULAR VOLUME 92.4 fL (81.0-99.0); MEAN PLATELET VOLUME 9.6 fL (7.9-10.8); MONOCYTES # (AUTO) 0.4 10^3/uL (0.0-1.0); MONOCYTES % (AUTO) 6.1 %; NEUTROPHILS # (AUTO) 4.5 10^3/uL (1.5-6.6); NEUTROPHILS % (AUTO) 63.2 %; PLT - PLATELET COUNT 228 10^3/uL (130-450); RED BLOOD COUNT 4.21 10^6/uL (4.20-5.40); RED CELL DISTRIBUTION WIDTH 14.5 % (12.0-15.0); WHITE BLOOD COUNT 7.2 x10^3/uL (4.8-10.8)
[2023-02-24 14:57] LABS: ALBUMIN 3.7 g/dL (3.2-5.5); ALBUMIN/GLOBULIN RATIO 1.4 (1.0-2.2); ALKALINE PHOSPHATASE 69 IU/L (42-121); ALT ALANINE AMINOTRANSFERASE 22 IU/L (10-60); AST ASPARTATE AMINOTRANSFERASE 15 IU/L (10-42); BILIRUBIN,TOTAL 0.5 mg/dL (0.2-1.0); BUN - BLOOD UREA NITROGEN 17 mg/dL (6-20); CALCIUM 9.6 mg/dL (8.5-10.3); CARBON DIOXIDE - CO2 31 mmol/L (21-32); CHLORIDE 105 mmol/L (101-111); CHOL/HDL RATIO 2.2 (<4.4); CHOLESTEROL 149 mg/dL; CREATININE 1.2 mg/dL (0.6-1.3); GFR - MDRD 44 (>89); GLUCOSE 196 mg/dL (74-104); HDL CHOLESTEROL 68 mg/dL; LDL CHOLESTEROL,CALCULATED 51 mg/dL; LDL/HDL RATIO 0.8 (<4.4); SODIUM 138 mmol/L (135-145); TOTAL PROTEIN 6.3 g/dL (6.4-8.9); TRIGLYCERIDES 151 mg/dL (48-352); VLDL CHOLESTEROL 30 mg/dL
[2023-02-24 20:15] LABS: ESTIMATED AVERAGE GLUCOSE 189 mg/dL (70-100); HEMOGLOBIN A1c% 8.2 % (4.27-6.07)
== END 2023-02-24 07:37 | disposition home or self-care (01) ==
LOC: LAB.S 07:36
PROVIDERS: ATTEND Registered Nurse
DX: Z79.899 Other long term (current) drug therapy (principal); E11.9 Type 2 diabetes mellitus without complications; I12.9 Hypertensive chronic kidney disease with stage 1 through stage 4 chronic kidney disease, or unspecified chronic kidney disease; N18.30 Chronic kidney disease, stage 3 unspecified; E78.5 Hyperlipidemia, unspecified; M10.9 Gout, unspecified
CPT/HCPCS: 36415; 80053; 80061; 83036; 83721; 84550; 85025

== ENCOUNTER 2023-05-19 07:18 | Outpatient (CLI) | payer MEDICARE, OTHER ==
[2023-05-19 15:06] LABS: CALCIUM 9.6 mg/dL (8.5-10.3); CREATININE 1.3 mg/dL (0.6-1.3); POTASSIUM 4.5 mmol/L (3.5-4.5)
[2023-05-19 15:33] LABS: ESTIMATED AVERAGE GLUCOSE 177 mg/dL (70-100); HEMOGLOBIN A1c% 7.8 % (4.27-6.07)
== END 2023-05-19 07:19 | disposition home or self-care (01) ==
LOC: LAB.S 07:18
PROVIDERS: ATTEND Registered Nurse
DX: E11.9 Type 2 diabetes mellitus without complications (principal)
CPT/HCPCS: 36415; 80048; 83036

== ENCOUNTER 2023-06-02 18:29 | Outpatient (CLI) | payer MEDICARE, OTHER ==
--- NOTE | 2023-06-03 20:51 | Ultrasound Report ---
PROCEDURE: Head or Neck Soft Tissue INDICATIONS: DYSPHAGIA, ENLARGED SUBMENTAL LYMPH NODE TECHNIQUE: Real-time scanning was performed of the submental region, with image documentation. COMPARISON: None FINDINGS: Focused ultrasound of the submental region demonstrates masslike region which is isoechoic to the fat measuring 4 x 1.1 x 3.7 cm with a focal nonreducible herniated portion measuring 1.8 x 0.5 x 1.5 cm. No internal vascularity. IMPRESSION: Focused ultrasound of the submental region demonstrates masslike region which is isoechoic to the fat measuring 4 x 1.1 x 3.7 cm with a focal nonreducible herniated portion measuring 1.8 x 0.5 x 1.5 cm. Recommend a contrast-enhanced CT of the neck for further evaluation. Reviewed by: Venkata Adams MD on 06/03/2023 8:49 PM PST Approved by: Venkata Adams MD on 06/03/2023 8:49 PM PST Station ID: [id number]
== END 2023-06-02 18:30 | disposition home or self-care (01) ==
LOC: DI 18:29
PROVIDERS: ATTEND Registered Nurse
DX: R13.10 Dysphagia, unspecified (principal); R59.0 Localized enlarged lymph nodes; R93.89 Abnormal findings on diagnostic imaging of other specified body structures

== ENCOUNTER 2023-06-10 10:43 | Outpatient (CLI) | payer MEDICARE, OTHER ==
[2023-06-10] MEDS ORDERED: iohexoL-300 100 ML VIAL IVP ONE (11:50)
--- NOTE | 2023-06-10 16:37 | CT Report ---
PROCEDURE: SOFT TISSUE NECK W INDICATIONS: DYSPHAGIA CONTRAST: 100ml omni 300 TECHNIQUE: After the administration of intravenous contrast, 3.0 mm axial sections acquired from the sella to th e aortic arch. Additional oblique axial 3.0 mm sections acquired through the pharynx. 3 mm thick co sandra reformats were generated. For radiation dose reduction, the following was used: automated exp osure control, adjustment of mA and/or kV according to patient size. COMPARISON: Ultrasound 06/02/2023. FINDINGS: Image quality: Excellent. Lymph nodes: No enlarged lymph nodes seen throughout the neck. Vessels: Visualized vasculature appears patent. Atherosclerotic vascular calcifications. Neck spaces: The oropharynx, nasopharynx, and pharynx demonstrate no mucosal lesions. The vocal cor ds, false vocal cords, pyriform sinuses, epiglottis, vallecula, and tongue base all appear normal. Be low the right mandible, deep to platysma, there is a fat density lesion without significant internal vascularity. The borders of the lesion are difficult to discern from the surrounding fat. This measur es approximately 4.5 x 3.0 x 2.6 cm. The lesion exerts mass effect on the adjacent submandibular glan d and platysma and displaces vascular structures inferiorly. Along the inferior aspect of the lesion is a soft tissue component which may represent displaced vasculature or other structures. Glands: The parotid and submandibular glands appear normal. The thyroid is normal in size and there are no incidental findings. Miscellaneous: Visualized brain and orbits appear normal. Lungs replacements. Lung apices appear lukasz ar. Superficial soft tissues appear normal. Bones: No suspicious bony lesions. Visualized sinuses and mastoids appear unremarkable. Multilevel degenerative changes of the spine. IMPRESSION: Below the right mandible is a fat density lesion without vascularity, as described above. Along the i nferior aspect of the lesion, there is an area which demonstrates more soft tissue density, this may represent inferiorly displaced vasculature or other structures by the lesion versus a soft tissue com ponent of the lesion. Differential favors lipoma, however given possible soft tissue component, malig maria is not excluded and follow-up CT soft tissue neck in 3 months is recommended to assess stabilit y. CLINICAL RECOMMENDATION STATEMENTS: In patients <35 years with an ITN detected on CT, MRI, or extrathyroidal ultrasound, the Committee re commends further evaluation with dedicated thyroid ultrasound if the nodule is "e1 cm and has no susp icious imaging features, and if the patient has normal life expectancy. In patients "e35 years with an ITN detected on CT, MRI, or extrathyroidal ultrasound, the Committee r ecommends further evaluation with dedicated thyroid ultrasound if the nodule is "e1.5 cm and has no s uspicious imaging features, and if the patient has normal life expectancy. (ACR, 2014) Reviewed by: Rodrigo Haddad MD on 06/10/2023 4:36 PM PST Approved by: Rodrigo Haddad MD on 06/10/2023 4:36 PM PST Station ID: [id number]
== END 2023-06-10 10:44 | disposition home or self-care (01) ==
LOC: DI 10:43
PROVIDERS: ATTEND Registered Nurse
DX: R13.10 Dysphagia, unspecified (principal); R93.89 Abnormal findings on diagnostic imaging of other specified body structures
CPT/HCPCS: 70491; Q9967

== ENCOUNTER 2023-07-16 07:39 | Outpatient (CLI) | payer MEDICARE, OTHER ==
[2023-07-16 15:51] LABS: ALBUMIN 3.9 g/dL (3.2-5.5); ALBUMIN/GLOBULIN RATIO 1.2 (1.0-2.2); ALKALINE PHOSPHATASE 66 IU/L (42-121); ALT ALANINE AMINOTRANSFERASE 27 IU/L (10-60); AST ASPARTATE AMINOTRANSFERASE 21 IU/L (10-42); BILIRUBIN,TOTAL 0.4 mg/dL (0.2-1.0); BUN - BLOOD UREA NITROGEN 34 mg/dL (6-20); CALCIUM 9.6 mg/dL (8.5-10.3); CARBON DIOXIDE - CO2 25 mmol/L (21-32); CHLORIDE 106 mmol/L (101-111); CHOL/HDL RATIO 2.2 (<4.4); CHOLESTEROL 141 mg/dL; CREATININE 1.4 mg/dL (0.6-1.3); GFR - MDRD 37 (>89); GLUCOSE 186 mg/dL (74-104); HDL CHOLESTEROL 63 mg/dL; LDL CHOLESTEROL,CALCULATED 55 mg/dL; LDL/HDL RATIO 0.9 (<4.4); MAGNESIUM 1.6 mg/dL (1.7-2.3); POTASSIUM 4.5 mmol/L (3.5-4.5); SODIUM 137 mmol/L (135-145); TOTAL PROTEIN 7.2 g/dL (6.4-8.9); TRIGLYCERIDES 114 mg/dL (48-352); VLDL CHOLESTEROL 23 mg/dL
== END 2023-07-16 07:40 | disposition home or self-care (01) ==
LOC: LAB.S 07:39
PROVIDERS: ATTEND Registered Nurse
DX: I10 Essential (primary) hypertension (principal); E78.2 Mixed hyperlipidemia; Z79.899 Other long term (current) drug therapy
CPT/HCPCS: 36415; 80053; 80061; 83721; 83735

== ENCOUNTER 2023-10-05 11:14 | Outpatient (CLI) | payer MEDICARE, OTHER ==
[2023-10-05 14:43] LABS: CREATININE,URINE 83.6 mg/dL
[2023-10-05 14:52] LABS: CALCIUM 10.1 mg/dL (8.5-10.3); CREATININE 1.3 mg/dL (0.6-1.3); POTASSIUM 4.9 mmol/L (3.5-4.5)
[2023-10-05 14:53] LABS: MICROALBUMIN,URINE < 0.7 mg/dL
[2023-10-05 18:03] LABS: ESTIMATED AVERAGE GLUCOSE 174 mg/dL (70-100); HEMOGLOBIN A1c% 7.7 % (4.27-6.07)
== END 2023-10-05 11:15 | disposition home or self-care (01) ==
LOC: LAB.S 11:14
PROVIDERS: ATTEND Registered Nurse
DX: E11.65 Type 2 diabetes mellitus with hyperglycemia (principal)
CPT/HCPCS: 36415; 80048; 82043; 82570; 83036

== ENCOUNTER 2023-12-18 11:20 | Outpatient (CLI) | payer MEDICARE, OTHER ==
[2023-12-18 15:41] LABS: CALCIUM 9.7 mg/dL (8.5-10.3); CREATININE 1.3 mg/dL (0.6-1.3); POTASSIUM 4.6 mmol/L (3.5-4.5)
== END 2023-12-18 11:21 | disposition home or self-care (01) ==
LOC: LAB.S 11:20
PROVIDERS: ATTEND Internal Medicine Cardiovascular Disease
DX: I10 Essential (primary) hypertension (principal)
CPT/HCPCS: 36415; 80048

== ENCOUNTER 2024-01-05 07:08 | Outpatient (CLI) | payer MEDICARE, OTHER ==
--- NOTE | 2024-01-05 12:54 | XRAY Report ---
PROCEDURE: Cervical Spine w/Flex/Ext 6+V INDICATIONS: SHOULDER PAIN, LEFT TECHNIQUE: 8 views of the cervical spine were acquired. COMPARISON: None. FINDINGS: Bones: No fractures or dislocations to the C7 level. No suspicious bony lesions. Straightening of the normal cervical lordosis. Grade 1 anterolisthesis of C4 on C5 and C5 on C6. Multilevel degenerati ve changes of the cervical spine with facet and uncovertebral arthropathy, disc height loss, endplate degenerative changes and spurring. This is severe at C4-C5, C5-C6 and C6-C7. There is limited range of motion between flexion and extension, with dynamic instability at C4-C5 and C5-C6. Soft tissues: Prevertebral soft tissues are normal in thickness. IMPRESSION: Severe degenerative changes of the cervical spine. Limited range of motion with dynamic instability a t C4-C5 and C5-C6. Consider MRI for further evaluation as clinically indicated. Reviewed by: Rodrigo Haddad MD on 01/05/2024 12:53 PM PDT Approved by: Rodrigo Haddad MD on 01/05/2024 12:53 PM PDT Station ID: [id number]
== END 2024-01-05 07:09 | disposition home or self-care (01) ==
LOC: DI.S 07:08
PROVIDERS: ATTEND Registered Nurse
DX: M47.812 Spondylosis without myelopathy or radiculopathy, cervical region (principal)

== ENCOUNTER 2024-02-05 13:49 | Outpatient (CLI) | payer MEDICARE, OTHER ==
[2024-02-05 14:21] LABS: CREATININE 1.3 mg/dL (0.6-1.3)
[2024-02-05] MEDS ORDERED: iohexoL-300 100 ML VIAL ONE (14:39)
[2024-02-05] MEDS: iohexoL-300 100 ML VIAL IVP ONE (18:38)
--- NOTE | 2024-02-08 15:46 | MRI Report ---
PROCEDURE: Cervical Spine WO INDICATIONS: ABN NECK FINDING TECHNIQUE: Noncontrast sagittal T1 spin echo and T2 fast spin echo, sagittal STIR, foraminal oblique sagittal T2 fast spin echo, and axial gradient echo or T2 fast spin echo through the cervical spine. COMPARISON: X-ray cervical spine 01/05/2024 FINDINGS: Image quality: Motion artifact is present within multiple sequences limiting areas of fine detail porfirio luation. Alignment and Curvature: There is there is trace anterolisthesis of C3 on C4, C4 on C5 and trace ret rolisthesis of C6 on C7. Bone Marrow: Marrow demonstrates normal overall signal. Spinal Cord: Visualized spinal cord has normal size and signal. No cerebellar tonsillar herniation. Paraspinous Soft Tissues: No paravertebral masses. Prevertebral soft tissues are normal in thicknes s. Discs: Multilevel moderate to severe disc desiccation most severe at C4-5, C5-6 and C6-7. C2-C3: Mild disc bulge without spinal stenosis or foraminal narrowing. C3-C4: Mild disc bulge without spinal stenosis. Mild left foraminal narrowing with uncovertebral hy pertrophy. C4-C5: Mild disc bulge with mild to moderate spinal stenosis. Moderate bilateral foraminal narrowing with uncovertebral hypertrophy. C5-C6: Mild disc bulge with mild spinal stenosis. Moderate bilateral foraminal narrowing, right grea ter than left with uncovertebral hypertrophy. C6-C7: Mild disc bulge with mild spinal stenosis. Moderate right and [id number] left foraminal narrowing with uncovertebral hypertrophy. C7-T1: No disc, spinal stenosis or foraminal narrowing. IMPRESSION: Multilevel disc bulges. Multilevel spinal stenosis most severe at C4-5 secondary to disc bulge. Multilevel foraminal narrowing overall most severe C5-6 and C6-7 secondary to uncovertebral arthropat hy. Reviewed by: Evita Collazo MD on 02/08/2024 3:45 PM PDT Approved by: Evita Collazo MD on 02/08/2024 3:45 PM PDT Station ID: [id number]
== END 2024-02-05 13:50 | disposition home or self-care (01) ==
LOC: DI 13:49
PROVIDERS: ATTEND Registered Nurse
DX: R93.89 Abnormal findings on diagnostic imaging of other specified body structures (principal); M53.2X2 Spinal instabilities, cervical region; M25.512 Pain in left shoulder; M50.31 Other cervical disc degeneration, high cervical region; M48.02 Spinal stenosis, cervical region; M47.812 Spondylosis without myelopathy or radiculopathy, cervical region
CPT/HCPCS: 36415; 70491; 72141; 82565; Q9967

== ENCOUNTER 2024-02-05 13:52 | Outpatient (CLI) | payer MEDICARE, OTHER ==
--- NOTE | 2024-02-08 20:45 | CT Report ---
PROCEDURE: Soft Tissue Neck W INDICATIONS: RIGHT UPPER ANTERIOR SUBMENTAL NECK MASS CONTRAST: 100ml omni 300 TECHNIQUE: After the administration of intravenous contrast, 3.0 mm axial sections acquired from the sella to th e aortic arch. Additional oblique axial 3.0 mm sections acquired through the pharynx. 3 mm thick co sandra reformats were generated. For radiation dose reduction, the following was used: automated exp osure control, adjustment of mA and/or kV according to patient size. COMPARISON: 06/10/2023 FINDINGS: Image quality: Excellent. Lymph nodes: No enlarged lymph nodes seen throughout the neck. Vessels: Visualized vasculature appears patent. Neck spaces: A well-defined focus of fat can be seen within the right submandibular region, which di splaces the right subareolar gland posteriorly. There is again seen along the inferior most aspect of this lesion a mild focus of soft tissue density, which is not significantly changed compared to the prior examination. The oropharynx, nasopharynx, and pharynx demonstrate no mucosal lesions. The vocal cords, false voca l cords, pyriform sinuses, epiglottis, vallecula, and tongue base all appear normal. Glands: The parotid and submandibular glands appear normal. The thyroid is normal in size and there are no incidental findings. Miscellaneous: Visualized brain and orbits appear normal. Lung apices appear clear. Superficial so ft tissues appear normal. Bones: No suspicious bony lesions. Visualized sinuses and mastoids appear unremarkable. 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 There is again seen with soft tissue density along the inferior aspect of this lipoma, which is stabl e compared to the prior examination. Although nonspecific, this is felt most likely to be benign. While no specific imaging follow-up is recommended, attention should be paid to this focus on any fut ure follow-up studies. Reviewed by: Felipe Pickering MD on 02/08/2024 7:44 PM FERNANDO Approved by: Felipe Pickering MD on 02/08/2024 7:44 PM [email or web address] Station ID: [id number]
== END 2024-02-05 13:53 | disposition home or self-care (01) ==
LOC: LAB 13:52
PROVIDERS: ATTEND Registered Nurse
DX: R93.89 Abnormal findings on diagnostic imaging of other specified body structures (principal)

== ENCOUNTER 2024-03-18 14:21 | Outpatient (CLI) | payer MEDICARE, OTHER ==
[2024-03-18 20:39] LABS: CREATININE,URINE 236.5 mg/dL; MICROALBUM/CREATININE RATIO,UR 5.1 ug/mg (<30.0); MICROALBUMIN,URINE 1.2 mg/dL
[2024-03-18 20:46] LABS: CALCIUM 10.1 mg/dL (8.5-10.3); CREATININE 1.5 mg/dL (0.6-1.3); POTASSIUM 3.8 mmol/L (3.5-4.5)
[2024-03-18 21:06] LABS: ESTIMATED AVERAGE GLUCOSE 134 mg/dL (70-100); HEMOGLOBIN A1c% 6.3 % (4.27-6.07)
== END 2024-03-18 14:22 | disposition home or self-care (01) ==
LOC: LAB.S 14:21
PROVIDERS: ATTEND Registered Nurse
DX: E11.65 Type 2 diabetes mellitus with hyperglycemia (principal)
CPT/HCPCS: 36415; 80048; 82043; 82570; 83036